=== PATIENT | female | born 1945 | race Caucasian/White ===

== ENCOUNTER 2020-06-28 11:55 | Outpatient (CLI) | payer MEDICARE, SELFPAY ==
--- NOTE | ~2020-06-28 | XR_ITS ---
XR humerus LT DATE: 06/28/2020 12:11 INDICATION: Pain of midshaft of left humerus. No injury. TECHNIQUE: AP and lateral views COMPARISON: None FINDINGS: Normal alignment at the left acromioclavicular and glenohumeral and elbow joints. No fractu re or dislocation, periosteal reaction or bone destruction of the left humerus. There are some benign cystic changes of the left greater tuberosity. IMPRESSION: No fracture or dislocation or suspicious bone destruction Reviewed, dictated and finalized at location A.
== END 2020-06-28 11:56 | disposition home or self-care (01) ==
PROVIDERS: PCP Internal Medicine; Visit Provider Internal Medicine
DX: M79.629 Pain in unspecified upper arm (principal)
CPT/HCPCS: 73060

== ENCOUNTER 2021-07-10 08:45 | Outpatient (CLI) | payer MEDICARE, SELFPAY ==
[2021-07-10 09:19] LABS: Alanine Aminotransferase 16 U/L (4-35); Albumin Level 4.9 g/dL (3.5-5.1); Alkaline Phosphatase 101 U/L (38-126); Anion Gap 6 mmol/L (8-16); Aspartate Amino Transferase 26 U/L (14-36); Bilirubin,Total 0.4 mg/dL (0.2-1.3); Blood Urea Nitrogen 21 mg/dL (7-17); Calcium 10.2 mg/dL (8.4-10.2); Carbon Dioxide 32 mmol/L (22-30); Chloride 101 mmol/L (98-107); Cholesterol 140 mg/dL (0-200); Estimated Glomerular Filt Rate > 60; Glucose 103 mg/dL (65-110); HDL Direct 61 mg/dL; Potassium 3.6 mmol/L (3.4-5.0); Sodium 139 mmol/L (137-145); Triglycerides 96 mg/dL (<150)
[2021-07-10 09:30] LABS: LDL Cholesterol Direct 53 mg/dL
== END 2021-07-10 08:46 | disposition home or self-care (01) ==
PROVIDERS: PCP Internal Medicine; Visit Provider Internal Medicine
DX: E78.5 Hyperlipidemia, unspecified (principal); Z51.81 Encounter for therapeutic drug level monitoring; Z79.899 Other long term (current) drug therapy; I10 Essential (primary) hypertension
CPT/HCPCS: 36415; 80053; 80061

== ENCOUNTER 2021-10-29 09:38 | Outpatient (CLI) | payer MEDICARE, SELFPAY ==
[2021-10-29 11:30] LABS: Basophils Absolute Auto 0.1 K/mm3 (0.0-0.1); Basophils Percent Auto 1.1 % (0.2-1.2); Eosinophils Absolute Auto 0.2 K/mm3 (0-0.3); Eosinophils Percent Auto 1.8 % (0-4.4); Hematocrit 42.9 % (37.0-47.0); Hemoglobin 13.8 g/dL (12.0-15.0); Immature Granulocyte Absolute 0.02 K/mm3 (0.00-0.031); Immature Granulocyte Percent A 0.2 % (0-0.5); Lymphocytes Absolute Auto 1.74 K/mm3 (0.9-3.2); Lymphocytes Percent Auto 19.3 % (18.3-44.2); Mean Corpuscular HGB Conc 32.2 g/dl (32-36); Mean Corpuscular Hemoglobin 29.2 pg (26-34); Mean Corpuscular Volume 90.7 fl (80-100); Mean Platelet Volume 10.2 fl (7.4-10.4); Monocytes Absolute Auto 0.7 K/mm3 (0.1-0.6); Neutrophils Absolute Auto 6.3 K/mm3 (1.3-6.7); Neutrophils Percent Auto 69.6 % (45.5-73.1); Platelet Count Result 358 k/mm3 (150-375); Red Blood Count 4.73 M/mm3 (4.2-5.4); Red Cell Distribution Width 13.1 % (11.5-14.5)
[2021-10-29 11:40] LABS: Albumin Level 4.9 g/dL (3.5-5.1); Anion Gap 12 mmol/L (8-16); Blood Urea Nitrogen 15 mg/dL (7-17); Carbon Dioxide 32 mmol/L (22-30); Chloride 97 mmol/L (98-107); Estimated Glomerular Filt Rate > 60; Glucose 101 mg/dL (65-110); Potassium 3.6 mmol/L (3.4-5.0); Sodium 141 mmol/L (137-145)
[2021-10-29 11:44] LABS: Urine Cotinine NEGATIVE
[2021-10-29 11:57] LABS: Hemoglobin A1C 5.9 % (<5.7)
== END 2021-10-29 09:39 | disposition home or self-care (01) ==
PROVIDERS: PCP Internal Medicine; Visit Provider Orthopaedic Surgery
DX: M17.12 Unilateral primary osteoarthritis, left knee (principal); Z01.818 Encounter for other preprocedural examination
CPT/HCPCS: 80048; 80307; 82040; 83036; 85025; 87070; 87147; 87181; 87186

== ENCOUNTER 2021-11-13 00:35 | Day surgery (SDC) | payer MEDICARE, SELFPAY ==
[2021-10-29 10:17] VITALS: BP 156/76; PULSE 66; RESP 18; TEMP 36.4; O2SAT 95; BMI 26.2
--- NOTE | 2021-10-29 10:32 | PC.NURSE ---
Report to the Outpatient Waiting Room, entrance under the green pavilion located off [facility], at time _10:00AM on date __11/13/21___. OR Time: __12:00PM . - You and your visitor will be asked a series of questions to screen for COVID 19 for your protection. - A mask is required within the hospital. - Only one visitor is allowed at this time. Patient visitors will be guided where to wait when not with patient. Preoperative COVID Testing Requirements: No COVID Test needed if: (proof is required; if not received patient will have Rapid Test prior to entry) - Patient has received COVID Vaccine at least 14 days prior to procedure date or - Patient has positive COVID test result within last 90 days of surgery date. COVID Test needed if above criteria is not met If not COVID vaccinated a COVID test must be conducted within 72 hours of surgery and patient is asked to isolate self from time of testing until procedure. You will go to the [facility] for your COVID testing. The [facility] is located at the corner of [address] from [facility]. You will only be called if COVID results are positive and your surgeon may reschedule your elective surgery date. Patients may have clear liquids (water, carbonated beverages, clear teas, apple juice) until 3 hours prior to surgery with a maximum of 20 ounces. - No food from midnight until time of surgery - Infants may have breast milk until 4 hours before surgery, infant formula 6 hours prior to surgery. - Children will be allowed to drink immediately following surgery. If applicable, please bring a bottle or sippy cup to assist with drinking. Juice, water, soda, and popsicles are readily available. For infants on formula, please bring formula the day of surgery. Pacifiers are allowed. Take the following medications with a SIP of water the morning of surgery: HYDRALAZINE Medications to discontinue per physician ____ALL VITAMINS/SUPPLEMENTS 3 DAYS PRE-OP Date to take last dose____11/09/21 Please no make-up, nail greenlandic, hairspray, perfume, deodorant, or body powder the day of surgery. No jewelry (including any body piercings) or valuables the day of surgery, leave them at home. Please take a shower or bath the night before, or the morning of, surgery with an antibacterial soap. Wear comfortable, loose fitting clothing. Children are encouraged to wear pajamas. - Jewelry must be removed prior to entering the operating room. Rings and piercings that are not removed may be cut off. - The hospital will not accept responsibility for valuables. - Please leave all valuables, including medications, at home the day of surgery. If you are going home after surgery, a licensed tram driver must drive you home. - NO public transportation without another adult. - We recommend that an adult stay with you for 24 hours following discharge. - We also recommend that you do not drive, make important decision, drink alcoholic beverages, or take any drugs that were not prescribed by your health care provider for at least 24 hours after your discharge time. For Pediatric surgeries, we recommend two adults accompany the child home (only one inside the building at this time). Follow any additional instructions given to you from your surgeon. Telephone instructions given to __PATIENT and asked if any additional questions and then verbalized understanding. Patient advised to call surgeon office or pre surgery nurse liaison [phone] if any additional questions.
[2021-11-13] VITALS (14 sets, daily range): BP systolic 92–151; BP diastolic 49–85; PULSE 72–95; RESP 8–22; TEMP 36.1–36.9; O2SAT 92–100
--- NOTE | ~2021-11-13 | XR_ITS ---
EXAMINATION: XR knee LT 2V DATE: 11/13/2021 16:40 INDICATION: Total left knee arthroplasty. Postop. TECHNIQUE: 2 views of left knee were obtained. COMPARISON: None. FINDINGS: There is a total left knee arthroplasty with patellar resurfacing in near-anatomic alignmen t. No fracture. There is gas in the knee joint and soft tissues, consistent with recent surgery. IMPRESSION: 1. Total left knee arthroplasty in near-anatomic alignment. Reviewed, dictated and finalized at location A. COLOGY TEACHER
--- NOTE | 2021-11-13 08:06 | PM.IMHP ---
H&P: HPI History of Present Illness Date/Time: 11/13/21 08:06 76-year-old female patient who presents today for left total knee arthroplasty and a cortisone injection into the right knee. She has severe lateral compartment arthritis with a significant valgus deformity in both her knees. Her left is bothering her more than the right at this point. He has been treating this nonsurgically for years. She has reached a point where she feels that her symptoms are bothering her on a daily basis and she would like proceed with total knee arthroplasty. She is unable to take anti-inflammatories due to a history allergic reactions with them. Chief Complaint: Left knee DJD Review of Systems Review of Systems: All systems reviewed & are unremarkable except as noted in HPI and below PMFSH Past Medical History Medical History Bilateral breast cysts Chronic right shoulder pain Diarrhea History of urinary urgency On [facility] drug therapy Osteoarthritis of both knees Pain of left thumb Family History Family History Father Hypertension Mother Hypertension Social History Social History Smoking status: Never smoker Second hand tobacco smoke exposure: No Alcohol intake: never Substance use: never Substance use type: does not use Living arrangements: with family Additional living arrangements comments: HUSB Spiritual care concerns: No Meds Home Medications and Allergies Home Medications Medication Instructions Recorded Confirmed Type hydralazine 50 mg tablet 50 mg PO TID #90 tablet 10/21/21 11/08/21 Rx ascorbic acid-vitamin E-biotin 1 tablet PO DAILY 10/29/21 11/08/21 History [Hair, Skin, Nails with Biotin] candesartan 32 1 tablet PO QAM #90 tablet 11/08/21 11/08/21 Rx mg-hydrochlorothiazide 12.5 mg tablet nystatin 100,000 unit/gram topical 1 applic TOPICAL BID #15 g 11/08/21 11/08/21 Rx powder Allergies Allergy/AdvReac Type Severity Reaction Status Date / Time naproxen Allergy Mild Hives Verified 11/08/21 10:50 niacin Allergy Mild Hives Verified 11/08/21 10:50 potassium chloride AdvReac Unknown Verified 11/08/21 10:50 Exam Narrative: 76-year-old female alert pleasant. She is 5 ft 5 and 155 lb. Left knee range of motion is from 7-75 degrees. She has effusion. She has an obvious valgus deformity. She walks with a limp. 2+ dorsalis pedis and posterior tibial artery pulse in left leg. Hip range of motion is full without discomfort left. Normal quad strength. No numbness or tingling left lower extremity. No edema in left lower extremity. Resp: Auscultation: clear to auscultation bilaterally Cardio: Rate: regular rate Rhythm: regular rhythm Assessment and Plan Additional Plan 76-year-old female has severe lateral compartment arthritis in the left knee with limited range of motion and significant pain daily basis. Surgical option was discussed and patient would like to proceed. Surgical procedure as well as the risks complications were discussed in detail all questions were answered we will proceed. She has seen her primary care doctor she has also seen Dr. Giron, pearl fisherman, she has had an echo done which showed ejection fraction at 67%, normal left ventricular function. She has been cleared from cardiology standpoint. She will stop her aspirin 1 week prior to surgery. Preop hemoglobin is 13.8 platelets of 358. Chem panel is all within normal limits creatinine is 0.50. Her nasal swab did grow oxacillin sensitive Staph aureus and she has been decolonization. We will avoid anti-inflammatories postoperatively as well as any Toradol in the perioperative injection.
[2021-11-13] MEDS: ACETAMINOPHEN 500 MG TABLET 1000 MG PO ×2 (10:16→18:59)
[2021-11-13] MEDS: LACTATED RINGERS 1,000 ML 30 ML IV CONT ×2 (10:40→16:28)
--- NOTE | 2021-11-13 11:10 | P.PNAN_ITS ---
Anes - Initial Pre Proc Eval Procedure: Operation Date: 11/13/21 12:00 Proposed Procedures p Left Total Knee Arthroplasty, Right Knee Cortisone Injection - Umang Ndiaye MD Date/Time: 11/13/21 11:10 Surgeon: Umang Ndiaye MD Pre Op Diagnosis: OA left knee, OA right knee Patient Data Age: 76 Gender: F Height: 1.66 m Weight: 70.05 kg Last Vital Signs Temp 36.9 C 11/13/21 10:08 Pulse 83 11/13/21 10:08 Resp 20 11/13/21 10:08 BP 151/67 H 11/13/21 10:08 Pulse Ox 100 11/13/21 10:08 Allergies Allergy/AdvReac Type Severity Reaction Status Date / Time naproxen Allergy Mild Hives Verified 11/13/21 10:08 niacin Allergy Mild Hives Verified 11/13/21 10:08 potassium chloride AdvReac Mild BLOODY Verified 11/13/21 10:08 STOOL/CONSTIPATION Home Medications Medication Instructions Recorded Confirmed Type hydralazine 50 mg tablet 50 mg PO TID #90 tablet 10/21/21 11/13/21 Rx ascorbic acid-vitamin E-biotin 1 tablet PO DAILY 10/29/21 11/13/21 History [Hair, Skin, Nails with Biotin] candesartan 32 1 tablet PO QAM #90 tablet 11/08/21 11/13/21 Rx mg-hydrochlorothiazide 12.5 mg tablet nystatin 100,000 unit/gram topical 1 applic TOPICAL BID #15 g 11/08/21 11/13/21 Rx powder Patient hx anesthesia problems: post op nausea/vomiting Family hx anesthesia problems: none Results Review: All pre-operative results and documents have been reviewed as part of the pre-operative evaluation. 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 Osteoarthritis of both knees Pain of left thumb Family History Family History Father Hypertension Mother Hypertension Social History Social History Smoking status: Never smoker Second hand tobacco smoke exposure: No Alcohol intake: never Substance use: never Substance use type: does not use Living arrangements: with family Additional living arrangements comments: HUSB Spiritual care concerns: No Anes - Eval Final PreProcedure Day of Procedure 11/13/21 11:10 Patient weight: normal Heart: regular rate and rhythm Lungs: clear to auscultation Airway: Mallampati scale class II Neurological: alert and oriented Last oral intake: >/= 8 hours ASA classification: II Emergent: no Anesthetic plan: proceed Anesthesia type and monitoring: general LMA and standard monitoring Results Review: All pre-operative results and documents have been reviewed as part of the pre-operative evaluation. Informed Consent: The patient's anesthetic plan and its attendant risks and benefits were discussed with the patient/family/POA. Questions were solicited and answers provided to the satisfaction of the patient/family/POA.
[2021-11-13] MEDS: TRANEXAMIC ACID 1,000MG/ISO100 1,000 MG/100 ML BAG 200 MG IVPB (11:55)
--- NOTE | 2021-11-13 11:58 | WPDHPUPDATE1 ---
History and Physical Update Update Date/Time: 11/13/21 11:58 History and Physical has been reviewed, including an updated exam of the patient. There are NO changes in the patient's condition. Risks, benefits, and alternatives have been discussed and questions answered. Patient agrees to proceed with procedure.
[2021-11-13] MEDS: ceFAZolin 2 GM/D5W 50 ML 2 GM/50 ML BAG IVPB (12:53)
[2021-11-13] MEDS: ceFAZolin SODIUM 1 GM VIAL 3 GM IRRIGATION (13:05)
[2021-11-13] MEDS: ceFAZolin SODIUM 1 GM VIAL IV PUSH (15:24)
[2021-11-13] MEDS: TRANEXAMIC ACID 1,000 MG/10 ML AMPUL 1000 MG IV PUSH (15:24)
--- NOTE | 2021-11-13 16:13 | W.PM.PROC2 ---
Procedure Note - Detailed Date of Procedure 11/13/21 Pre-op Diagnosis OA left knee with grade 3 valgus deformity and medial joint space widening, OA right knee Post-op Diagnosis same Procedure Performed Cortisone injection right knee, left total knee arthroplasty with Biomet SSK constrained system Surgeon Umang Ndiaye MD Industrial Organization Manager Sabrina Shi Anesthesia general Description of Procedure Patient was brought to the operating room and general anesthesia was administered. She received 2 g Ancef weight based vancomycin 1 g of tranexamic acid preoperatively. The right knee was scrubbed with chlorhexidine alcohol and 80 mg of Depo-Medrol 3 cc 1% lidocaine were injected into the right knee other difficulty. The left knee was prepped draped usual fashion. Limb was exsanguinated tourniquet elevated to 250 mmHg. Under anesthesia she had range of motion from 10? to 140?. A 7 in longitudinal midline incision was used and a a vastus medialis splitting approach was utilized splitting the vastus medialis at the level of superior pole of patella. The infrapatellar and suprapatellar fat pads were excised the quadriceps of ectomy carried out. The patella measured 21 mm in thickness was cut to 15 mm and a protector cap applied. Next a guide myles was inserted down the femoral canal after aspiration of canal contents and using the 4 degree valgus cutting bushing 11 mm of bone removed the distal femur. This removed about 3 from lateral side. Next the tibial plateau was cut. Our initial cut did not quite get through the articular cartilage of the posterior aspect of the medial femoral condyle and therefore an additional 2 mm of bone was removed which gave appropriate bone surface. We made the cut perpendicular axis of tibia with perhaps 1 degree of valgus to avoid impingement of the stem of the tibial component on the lateral cortex of the tibial shaft. The femoral sizing guide was applied using 5? of external rotation which matched Whitesides line appropriately. Posterior referencing pinholes were applied. The 62.5 cutting block was applied vanguard and AP and chamfer cuts were made. Femoral component fit line to line anterior to posterior. It overhung a about a mm and half mediolateral at this point. At 90? of flexion we inserted the CR 10 mm insert and we had adequate play confirming we had enough tibial bone removed. The knee became very tight at about 45? of flexion. Additional 3 mm of bone was removed the distal femur at this time. Chamfer cuts were revisited. Posterior capsular release was performed as she did have a flexion contracture. This was brought to the medial aspect of the center of the capsule insertion to the lateral add a gastrocnemius tendon. The IT band did not seem to be exceptionally tight but we did do a synovectomy over the lateral capsule leaving the IT band intact and the lateral tibial osteophyte was carefully removed and posterolaterally the posterolateral capsule insertion was released from tibia. We read trialed and the knee still lacks 5? of extension and was very tight laterally in this position. Therefore an additional 2 mm of bone removed from the distal femur. Chamfer cuts revisited and this time with trialing the knee came out to just full extension and the medial side could be closed down with varus stress but no play laterally. The tibial tray was sized to the vanguard 67 placed at proper rotation and punched which fit line to line posterolateral to anteromedial. This was punched with the 80 mm finned stem which did not appear to cause impingement in the tibial shaft and ostial surface. It seated fully. Next the 360 degree 60 the 2.5 femoral trial was applied to the femur and pinned. We applied the bushing for reaming the boss which was performed and we applied the guide for resecting the intercondylar box. We confirmed that the box was properly cut with the rectangular block that fit easily. The femoral canal was reamed t
--- NOTE | 2021-11-13 16:38 | SUR.PHASEI ---
PORTABLE XRAY OF LEFT KNEE.
[2021-11-13] MEDS: fentaNYL CITRATE INJ (*CRX) 100 MCG/2 ML VIAL 25 MCG IV PUSH ×5 (17:10→18:16)
--- NOTE | 2021-11-13 17:17 | SUR.PHASEI ---
CORRECTION: DISREGARD PAIN INTERVENTION OF IONOPHERESIS AT 1655.
--- NOTE | 2021-11-13 18:36 | ADMGEN ---
This patient, Hoa Miranda, was admitted to [facility] Surgery-3. Patient/family oriented to hospital policies and general routines including ID bracelet, bed and alarms, visiting hours, pain management, procedures, bathroom and other care routines, personal items, smoking policy, room service/diet, and visiting hours. Information on how to activate the Rapid Response Team has been discussed. Patient/Family are encouraged to report perceived risks to care and to ask questions if they do not understand what they are told or what they should do.
[2021-11-13] MEDS: SODIUM CHLORIDE 0.9% IV 1,000 ML 125 ML IV CONT (18:52)
[2021-11-13] MEDS: SENNA/DOCUSATE SODIUM TABLET 2 TAB PO (18:59)
[2021-11-13] MEDS: hydrALAZINE HCL 50 MG TABLET PO (20:14)
[2021-11-13] MEDS: oxyCODONE HCL (*CRX) 2.5 MG TAB IR PO (21:03)
--- NOTE | 2021-11-13 22:18 | PM.IMCN ---
Assessment and Plan Assessment and plan (1) Primary osteoarthritis involving multiple joints: Code(s): M89.49 - Other hypertrophic osteoarthropathy, multiple sites Status: Acute (2) Status post arthroscopy of left knee: Code(s): Z98.890 - Other specified postprocedural states Status: Acute (3) Benign essential hypertension: Code(s): I10 - Essential (primary) hypertension Status: Acute (4) Borderline diabetes: Code(s): R73.03 - Prediabetes Status: Acute Additional Plan # stauts post left TKA per Dr. Ndiaye # bialteral knee osteoarthritis. s/p right knee steroid injection. # htn: optimal. resume home medicatiosn. candesartan and hydralazine. # rediabets: a1c ntoed at 5.9. # DVT Proph: per orthopedics # postoperaive care: pt/ot as planned in am. Thank you for the consultation. HPI Data of Consult Consult date: 11/13/21 Requesting Physician: Umang Ndiaye MD Primary Care Provider: Cecilio Arreola, Consult Narrative Narrative: Hoa Miranda is a 76 year old female who presented to the hospital for elective right Total knee arthroplasty. which was done ths . hospitalist team consulted for medical management. she has hx of hypertension for which she takes candesartan and hydralazine and has been well controlled. she is currently post operative day 0 and in PACU. she is feeling alittle nausous, she recenlty got oxycodone. denies any pain currnetly. no sob, cehst pain. Review of Systems Review of Systems: - CONSTITUTIONAL: Denies weight loss, fever and chills. - HEENT: Denies changes in vision and hearing - RESPIRATORY: Denies SOB and cough. - CV: Denies palpitations and CP. - GI: Denies abdominal pain, nausea, vomiting and diarrhea. - : Denies dysuria and urinary frequency. - MSK: Denies myalgia and joint pain.hx of bailterarl knee pains - SKIN: Denies rash and pruritus. - NEUROLOGICAL: Denies headache and syncope. - PSYCHIATRIC: Denies recent changes in mood. Denies anxiety and depression. 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 Osteoarthritis of both knees Pain of left thumb Family History Family History Father Hypertension Mother Hypertension Social History Social History Smoking status: Never smoker Second hand tobacco smoke exposure: No Alcohol intake: never Substance use: never Substance use type: does not use Living arrangements: with family Additional living arrangements comments: HUSB Spiritual care concerns: No Meds Home Medications and Allergies Home Medications Medication Instructions Recorded Confirmed Type hydralazine 50 mg tablet 50 mg PO TID #90 tablet 10/21/21 11/13/21 Rx ascorbic acid-vitamin E-biotin 1 tablet PO DAILY 10/29/21 11/13/21 History [Hair, Skin, Nails with Biotin] candesartan 32 1 tablet PO QAM #90 tablet 11/08/21 11/13/21 Rx mg-hydrochlorothiazide 12.5 mg tablet nystatin 100,000 unit/gram topical 1 applic TOPICAL BID #15 g 11/08/21 11/13/21 Rx powder Allergies Allergy/AdvReac Type Severity Reaction Status Date / Time naproxen Allergy Mild Hives Verified 11/13/21 18:31 niacin Allergy Mild Hives Verified 11/13/21 18:31 potassium chloride AdvReac Mild BLOODY Verified 11/13/21 18:31 STOOL/CONSTIPATION Vital Signs Vital Signs - 24 hr 11/13/21 10:08 11/13/21 16:28 11/13/21 16:40 Temperature 98.4 F 97.9 F Pulse Rate 83 95 75 Respiratory Rate 20 17 17 Blood Pressure 151/67 H 116/61 12
[2021-11-14] VITALS: BP 139/66; PULSE 84; RESP 16; TEMP 37.1; O2SAT 92
[2021-11-14] MEDS: ACETAMINOPHEN 500 MG TABLET 1000 MG PO ×3 (00:03→13:29)
[2021-11-14 04:00] VITALS: BP 139/59; PULSE 80; RESP 16; TEMP 37.2; O2SAT 94
[2021-11-14 05:56] VITALS: O2SAT 94
[2021-11-14] MEDS: oxyCODONE HCL (*CRX) 2.5 MG TAB IR PO (06:00)
[2021-11-14 06:56] LABS: Basophils Percent Auto 0.1 % (0.2-1.2); Hematocrit 34.6 % (37.0-47.0); Hemoglobin 11.5 g/dL (12.0-15.0); Immature Granulocyte Absolute 0.09 K/mm3 (0.00-0.031); Immature Granulocyte Percent A 0.5 % (0-0.5); Lymphocytes Absolute Auto 0.73 K/mm3 (0.9-3.2); Mean Corpuscular HGB Conc 33.2 g/dl (32-36); Mean Corpuscular Hemoglobin 29.3 pg (26-34); Monocytes Absolute Auto 1.6 K/mm3 (0.1-0.6); Monocytes Percent Auto 8.6 % (2.6-8.5); Neutrophils Percent Auto 86.8 % (45.5-73.1); Platelet Count Result 296 k/mm3 (150-375); Red Blood Count 3.93 M/mm3 (4.2-5.4); Red Cell Distribution Width 13.2 % (11.5-14.5); White Blood Count 18.4 K/mm3 (4.5-10.0)
[2021-11-14 07:04] LABS: Anion Gap 8 mmol/L (8-16); Blood Urea Nitrogen 15 mg/dL (7-17); Calcium 9.1 mg/dL (8.4-10.2); Carbon Dioxide 28 mmol/L (22-30); Chloride 100 mmol/L (98-107); Estimated CRCL calculation 76 ml/min; Estimated Glomerular Filt Rate > 60; Glucose 156 mg/dL (65-110); Potassium 3.6 mmol/L (3.4-5.0); Sodium 136 mmol/L (137-145)
--- NOTE | 2021-11-14 07:30 | PM.PNORT ---
Subjective Subjective Date/Time Seen: 11/14/21 07:30 Postop day 1 patient is alert. Afebrile vital signs are stable. Morning labs are noted. Patient is complaining some pain in the right upper. This started overnight. She thinks she has been using the right leg more. Right hip does have full range of motion without discomfort. She is able lift the right leg off the bed without discomfort. She has negative Stinchfield maneuver. There is no bruising noted around the upper thigh. I think this is just muscular soreness from her straining move herself in bed using the right leg. Otherwise patient's left leg she is neurovascularly intact. Her dressing is dry. Minimal swelling in the left knee. Pain overall is well controlled. We will plan to have the patient work with physical therapy twice today and then plan on discharging her home this afternoon if she continues to do well. Objective Data Vital Signs Vital Signs: Vital Signs - 24 hr 11/13/21 10:08 11/13/21 16:28 11/13/21 16:40 Temperature 36.9 C 36.6 C Pulse Rate 83 95 75 Respiratory Rate 20 17 17 Blood Pressure 151/67 H 116/61 125/59 L Pulse Oximetry 100 95 95 11/13/21 16:55 11/13/21 17:05 11/13/21 17:20 Temperature Pulse Rate 72 76 79 Respiratory Rate 11 L 11 L 22 H Blood Pressure 107/54 L 92/49 L 123/62 Pulse Oximetry 92 94 93 11/13/21 17:35 11/13/21 17:50 11/13/21 18:05 Temperature Pulse Rate 76 75 80 Respiratory Rate 13 9 L 8 L Blood Pressure 110/59 L 117/54 L 114/54 L Pulse Oximetry 92 92 92 11/13/21 18:29 11/13/21 18:40 11/13/21 18:45 Temperature 36.1 C L 36.1 C L Pulse Rate 78 83 Respiratory Rate 18 18 Blood Pressure 133/55 L 132/60 Pulse Oximetry 92 93 93 11/13/21 19:06 11/13/21 20:06 11/14/21 00:00 Temperature 37.1 C Pulse Rate 87 80 84 Respiratory Rate 16 16 16 Blood Pressure 140/69 130/85 139/66 Pulse Oximetry 96 97 92 11/14/21 04:00 11/14/21 05:56 Temperature 37.2 C Pulse Rate 80 Respiratory Rate 16 Blood Pressure 139/59 L Pulse Oximetry 94 94 Intake/Output Intake/Output: Intake & Output 11/11/21 11/12/21 11/13/21 11/14/21 23:59 23:59 23:59 23:59 Intake Total 1250 300 Output Total 75 400 Balance 1175 -100 Meds/Results Medications: Active Medications Generic Name Dose Route Start Last Admin Trade Name Freq PRN Reason Stop Dose Admin Acetaminophen 1,000 mg 11/13/21 18:21 11/14/21 00:03 Acetaminophen 500 Mg Tablet PO 1,000 mg Q6HR MARILU Administration Apixaban 2.5 mg 11/14/21 09:00 Apixaban 2.5 Mg Tablet PO Q12HR MARILU Candesartan Cilexetil 32 mg 11/14/21 09:00 Candesartan Cilexetil 16 Mg Tablet PO QAM [facility] Doxycycline Hyclate 100 mg 11/14/21 09:00 Doxycycline Hyclate 100 Mg Tablet PO 11/26/21 08:59 Q12HR MARILU Hydralazine HCl 50 mg 11/13/21 18:30 11/13/21 20:14 Hydralazine Hcl 50 Mg Tablet PO 50 mg TID MARILU Administration Hydrochlorothiazide 12.5 mg 11/14/21 09:00 Hydrochlorothiazide 12.5 Mg Capsule PO QAM [facility] Cefazolin Sodium 1 gm in 50 mls @ 100 mls/hr 11/13/21 21:00 11/14/21 05:34 Ancef 1 Gm/D5w 50 Ml Pm IVPB 11/14/21 13:29 Infused Q8H MARILU Infusion Vancomycin HCl 1,000 mg in 250 mls @ 250 mls/hr 11/13/21 23:00 11/14/21 01:00 Vancomycin 1,000 Mg/D5w 250 Ml IVPB 11/14/21 11:59 Infused Q12H MARILU Infusion Naloxone HCl 0.1 mg 11/13/21 18:21 Naloxone Hcl 0.4 Mg/Ml Vial IV PUSH Q2M PRN Opiate Reversal Oxycodone HCl 2.5 mg 11/13/21 21:00 11/14/21 06:00 Oxycodone Hcl (*Crx) 2.5 Mg Tab Ir PO 2.5 mg Q4HR MARILU Administration Oxycodone HCl 5 mg 11/13/21 18:21 Oxycodone Hcl (*Crx) 5 Mg Tab Ir PO Q4H PRN Pain Rated 4-10 Polyethylene Glycol 17 gm 11/14/21 09:00 Polyethylene Glycol 3350 17 Gm Powd.Pack PO QAM MARILU Senna/Docusate Sodium 2 tab 11/13/21 18:21 11/13/21 18:59 Senna/Docusate Sodium Tablet PO 2 tab BID MARILU Administration Tolnaft
--- NOTE | 2021-11-14 07:36 | PM.DS ---
DS: Admitting Diagnosis Discharge Date 11/14 Admitting Diagnosis Left knee DJD DS: Summary Hospital Course Hospital Course: Stable Time Spent with Patient Time attestation: Total time spent providing and/or coordinating discharge services: 76-year-old female who underwent left total knee arthroplasty on 11/13. Underwent the procedure without complications. Postoperatively she has been afebrile vital signs been stable. Neurovascularly intact. She was complaining of some pain in the right upper thigh on postop day 1 that developed overnight. She thinks she was putting a lot more stress onto the right leg to move herself around not only in bed but also to get up and go to the restroom. She had no pain with range of motion of the right thigh. She was able to pick the right leg up off the bed on her own. This could be musculoskeletal or possibly referred pain from her back. We will just keep an eye on this to see if it improves. Otherwise her pain is well controlled with scheduled Tylenol as well as oxycodone 2.5 mg. We are not using Celebrex on her due to her allergies. She is going home on a 2 week course of doxycycline because of her positive nasal swab for LAUREN. She has outpatient therapy starting next Thursday. Patient was advised to keep leg elevated at home but to exercise on a regular basis. She will also go home on MiraLax and Senokot. Patient was advised any questions or concerns she is to call the office otherwise we will see her at her appointment date. DS: Data Data Completed and Pending Labs on day of discharge: Labs from last 24 hours 11/14/21 11/14/21 11/13/21 06:31 06:31 10:42 WBC 18.4 H RBC 3.93 L Hgb 11.5 L Hct 34.6 L MCV 88.0 MCH 29.3 MCHC 33.2 RDW 13.2 Plt Count 296 MPV 10.0 Immature Gran % (Auto) 0.5 Neut % (Auto) 86.8 H Lymph % (Auto) 4.0 L [place] % (Auto) 8.6 H Eos % (Auto) 0.0 Baso % (Auto) 0.1 L Lymph # (Auto) 0.73 L [place] # (Auto) 1.6 H Eos # (Auto) 0.0 Baso # (Auto) 0.0 Abs Immat Gran (auto) 0.09 H Absolute Neuts (auto) 16.0 H Absolute Nucleated RBC 0.0 Nucleated RBC % 0.0 Sodium 136 L Potassium 3.6 Chloride 100 Carbon Dioxide 28 Anion Gap 8 BUN 15 Creatinine 0.50 L Estim Creat Clear Calc 76 Estimated GFR > 60 Glucose 156 H Calcium 9.1 Blood Type O Positive Antibody Screen Negative Discharge Plan Discharge Patient Disposition: Home, Self-Care Discharge Instructions: UMANG NDIAYE M.D [facility], [place] [address] [place] [address] POST-OPERATIVE DISCHARGE INSTRUCTIONS TOTAL KNEE ARTHROPLASTY 1. When resting, lie on back with leg elevated above hear to minimize swelling. Significant swelling could indicate a blood clot and if this occurs call the office (or go to the ER) to have a venous ultrasound. 2. Do exercise 5 times a day. 3. Do not sit with leg down except for meals. 4. Wound Care: Nursing will give additional dressings at discharge. Patient to change dressing at home 1 week from surgery, then maintain until seen in office. 5. May shower with dressing in place. Stand Alone Forms: General Discharge Instructions Follow-up/Referrals: Umang Ndiaye MD [Physician] - Keep Reg. Scheduled Appt. Discharge Medications: New polyethylene glycol 3350 [Miralax] 17 gram Powder In Packet 17 g PO QAM Qty: 30 RF: 0 sennosides-docusate sodium [Senokot-S] 8.6-50 mg Tablet 2 tab PO BID Qty: 60 RF: 0 acetaminophen 500 mg Tablet 1,000 mg PO Q6HR Qty: 90 RF: 0 doxycycline hyclate 100 mg Tablet 100 mg PO Q12HR Qty: 28 RF: 0 oxycodone 5 mg Tablet 5 mg PO Q4H PRN (Reason: Pain Rated 4-10) Qty: 25 RF: 0 Eliquis 2.5 mg Tablet 2.5 mg PO Q12HR Qty: 27 RF: 0 Continued candesartan-hydrochlorothiazid 32-12.5 mg tablet 1 tablet PO QAM Qty: 90 RF: 2 nystat
[2021-11-14 08:00] VITALS: BP 142/60; PULSE 82; RESP 16; O2SAT 98
--- NOTE | 2021-11-14 08:08 | PM.IMPN ---
Progress Note: A&P Assessment and Plan (1) Benign essential hypertension: Code(s): I10 - Essential (primary) hypertension Status: Acute Assessment and Plan: Chronic hypertension, well controlled on home regimen. Continue home medication without modification. Encouraged physical activity and low-salt diet. (2) Borderline diabetes: Code(s): R73.03 - Prediabetes Status: Acute Assessment and Plan: No concentrated sugar diet. Encourage physical activity. (3) Primary osteoarthritis involving multiple joints: Code(s): M89.49 - Other hypertrophic osteoarthropathy, multiple sites Status: Acute (4) Status post arthroscopy of left knee: Code(s): Z98.890 - Other specified postprocedural states Status: Acute Assessment and Plan: Management per Ortho. Continue physical therapy and occupational therapy. Additional Plan # stauts post left TKA per Dr. Ndiaye # bialteral knee osteoarthritis. s/p right knee steroid injection. # htn: optimal. resume home medicatiosn. candesartan and hydralazine. # rediabets: a1c ntoed at 5.9. # DVT Proph: per orthopedics # postoperaive care: pt/ot as planned in am. Thank you for the consultation. Subjective Date/time seen: 11/14/21 08:08 Narrative: Hoa Miranda is a 76 year old female who presented to the hospital for elective right Total knee arthroplasty. which was done this evening. hospitalist team consulted for medical management. she has hx of hypertension for which she takes candesartan and hydralazine and has been well controlled. she is currently post operative day 0 and in PACU. she is feeling a little nauseous, she recently got oxycodone. denies any pain currently. no sob, chest pain. Review of Systems Review of Systems: All systems reviewed & are unremarkable except as noted in HPI and below Constitutional: Constitutional: Reports fatigue and Reports weakness Neurologic: Reports weakness Endocrine: Endocrine: Reports fatigue Exam Narrative: GENERAL: The patient is well developed, not in acute distress HEENT: Nonicteric sclerae, PERRLA, EOMI. Oropharynx clear. Moist mucous membranes. Conjunctivae appear well perfused. CHEST: Chest wall is nontender. HEART: Regular rate and rhythm without murmur, rubs, or gallops LUNGS: Clear to auscultation bilaterally. no respiratory distress ABDOMEN: Soft, positive bowel sounds, non-tender, no organomegaly. SKIN: No rash, no excessive bruising, petechiae, or purpura. NEUROLOGIC: Cranial nerves II-XII intact, alert and oriented x 3, no gross motor deficits EXTREMITIES: no edema, cyanosis or clubbing; left knee with dressing on Objective Data Vital Signs Vital Signs: Vital Signs - 24 hr 11/13/21 10:08 11/13/21 16:28 11/13/21 16:40 Temperature 98.4 F 97.9 F Pulse Rate 83 95 75 Respiratory Rate 20 17 17 Blood Pressure 151/67 H 116/61 125/59 L Pulse Oximetry 100 95 95 11/13/21 16:55 11/13/21 17:05 11/13/21 17:20 Temperature Pulse Rate 72 76 79 Respiratory Rate 11 L 11 L 22 H Blood Pressure 107/54 L 92/49 L 123/62 Pulse Oximetry 92 94 93 11/13/21 17:35 11/13/21 17:50 11/13/21 18:05 Temperature Pulse Rate 76 75 80 Respiratory Rate 13 9 L 8 L Blood Pressure 110/59 L 117/54 L 114/54 L Pulse Oximetry 92 92 92 11/13/21 18:29 11/13/21 18:40 11/13/21 18:45 Temperature 96.9 F L 97 F L Pulse Rate 78 83 Respiratory Rate 18 18 Blood Pressure 133/55 L 132/60 Pulse Oximetry 92 93 93 11/13/21 19:06 11/13/21 20:06 11/14/21 00:00 Temperature 98.7 F Pulse Rate 87 80 84 Respiratory Rate 16 16 16 Blood Pressure 140/69 130/85 139/66 Pulse Oximetry 96 97 92 11/14/21 04:00 11/14/21 05:56 Temperature 98.9 F Pulse Rate 80 Respiratory Rate 16 Blood Pressure 139/59 L Pulse Oximetry 94 94 Intake/Output Intake/Output: Intake & Output 11/11/21 11/12/21 11/13/21 11/14/21 23:59 23:59 23:59 23:59 Intake Total 1250 300 Output Total 75 400 Ba
[2021-11-14] MEDS: APIXABAN 2.5 MG TABLET PO (09:20)
[2021-11-14] MEDS: CANDESARTAN CILEXETIL 16 MG TABLET 32 MG PO (09:20)
[2021-11-14] MEDS: SENNA/DOCUSATE SODIUM TABLET 2 TAB PO (09:20)
[2021-11-14] MEDS: hydroCHLOROthiazide 12.5 MG CAPSULE PO (09:21)
[2021-11-14] MEDS: DOXYCYCLINE HYCLATE 100 MG TABLET PO (09:21)
[2021-11-14] MEDS: hydrALAZINE HCL 50 MG TABLET PO (09:22)
--- NOTE | 2021-11-14 09:27 | WPDANESPN ---
Anes - Prog Note Post-Op Date/Time: 11/14/21 09:27 Cardiovascular status: normal Respiratory status: normal Airway patency: baseline Mental status: baseline Post-Op hydration status: normal Vital Signs: Last Vital Signs Temp 37.2 C 11/14/21 04:00 Pulse 80 11/14/21 04:00 Resp 16 11/14/21 04:00 BP 139/59 L 11/14/21 04:00 Pulse Ox 94 11/14/21 05:56 Pain Score (VAS): 4 I/O: Intake & Output 11/13/21 11/14/21 11/14/21 23:59 07:59 15:59 Intake Total 850 300 Output Total 75 400 Balance 775 -100 Laboratory Tests 11/14/21 06:31 11/14/21 06:31 11/13/21 11/14/21 11/14/21 10:42 06:31 06:31 WBC 18.4 H RBC 3.93 L Hgb 11.5 L Hct 34.6 L MCV 88.0 MCH 29.3 MCHC 33.2 RDW 13.2 Plt Count 296 MPV 10.0 Immature Gran % (Auto) 0.5 Neut % (Auto) 86.8 H Lymph % (Auto) 4.0 L [place] % (Auto) 8.6 H Eos % (Auto) 0.0 Baso % (Auto) 0.1 L Lymph # (Auto) 0.73 L [place] # (Auto) 1.6 H Eos # (Auto) 0.0 Baso # (Auto) 0.0 Abs Immat Gran (auto) 0.09 H Absolute Neuts (auto) 16.0 H Absolute Nucleated RBC 0.0 Nucleated RBC % 0.0 Sodium 136 L Potassium 3.6 Chloride 100 Carbon Dioxide 28 Anion Gap 8 BUN 15 Creatinine 0.50 L Estim Creat Clear Calc 76 Estimated GFR > 60 Glucose 156 H Calcium 9.1 Blood Type O Positive Antibody Screen Negative Post-procedural complaints: none Patient Feedback: Patient satisfied with anesthetic care.
== END 2021-11-14 14:30 | disposition home or self-care (01) ==
LOC: ANHSURGERY 17:28 → ANHSUROVER 04-04 12:48
PROVIDERS: PCP Internal Medicine; Visit Provider Orthopaedic Surgery
PROC: (CPT 27447; principal; 2021-11-13 12:00)
DX: M17.0 Bilateral primary osteoarthritis of knee (principal); I10 Essential (primary) hypertension; R73.03 Prediabetes; Z79.899 Other long term (current) drug therapy
CPT/HCPCS: 27447; 20610; 36415; 73560; 80048; 80307; 82040; 83036; 85025; 86850; 86900; 86901; 87070; 87147; 87181; 87186; 97110; 97116; 97161; 97165; A9270; C1713; C1776; J0171; J0690; J1040; J1100; J1170; J2250; J2270; J2370; J2405; J2710; J2795; J3010; J3370; J7030; J7120

== ENCOUNTER 2021-11-25 13:30 | Outpatient (CLI) | payer MEDICARE, SELFPAY ==
--- NOTE | ~2021-11-25 | US_ITS ---
EXAMINATION: US venous doppler [facility] EXAM DATE: 11/25/2021 14:02 INDICATION: Left leg swelling. TECHNIQUE: Multiple grayscale, color flow and Doppler images of the left lower extremity deep venous system were obtained and reviewed. There is no prior study for comparison. FINDINGS: The left common femoral, femoral and profunda veins demonstrate normal color flow, respirat ory variation, augmentation and compressibility. Compressibility, color flow confirmed within the le ft popliteal, posterior tibial, peroneal, and greater saphenous veins. IMPRESSION: 1. No left lower extremity deep venous thrombosis. Reviewed, dictated and finalized at location B. [employer]
== END 2021-11-25 13:31 | disposition home or self-care (01) ==
LOC: ANHIMG 13:35
PROVIDERS: PCP Internal Medicine; Visit Provider Orthopaedic Surgery
DX: R60.0 Localized edema (principal)
CPT/HCPCS: 93971

== ENCOUNTER 2021-11-28 13:25 | Outpatient (CLI) | payer MEDICARE, SELFPAY ==
[2021-11-28 14:33] LABS: Add Urine Microscopic? YES; Appearance Urine Clear (Clear); Bacteria Urine Trace /hpf; Bilirubin Urine Negative (Negative); Blood Urine Negative (Negative); Color Urine Yellow (Yellow); Glucose Urine UA Negative (Negative); Ketones Urine Negative (Negative); Leukocyte Esterase Ur 1+ LEU/UL (Negative); Mucus Urine Rare /lpf; Nitrate Urine Negative (Negative); Protein Urine Negative (Negative); RBC Urine 0-2 /hpf (0-2); Specific Grav Ur 1.016 (1.001-1.035); Squamous Epithelial Cell Urine Many /hpf (Few); Urobilinogen Urine Negative mg/dL (<2.0); WBC Urine 0-3 /hpf
== END 2021-11-28 13:26 | disposition home or self-care (01) ==
LOC: ANHLAB 13:28
PROVIDERS: PCP Internal Medicine; Visit Provider Internal Medicine
DX: R30.0 Dysuria (principal)
CPT/HCPCS: 81001

== ENCOUNTER 2021-12-09 15:20 | Outpatient (CLI) | payer MEDICARE, SELFPAY | END 2021-12-09 15:21 | disposition home or self-care (01) | LOC: ANHLAB 15:22 | PROVIDERS: PCP Internal Medicine; Visit Provider Internal Medicine | DX: R30.0 Dysuria (principal) | CPT/HCPCS: 87086; 87088 ==

== ENCOUNTER 2022-02-14 08:33 | Outpatient (CLI) | payer MEDICARE, SELFPAY ==
--- NOTE | ~2022-02-14 | US_ITS ---
EXAMINATION: US abdomen complete DATE: 02/14/2022 09:43 INDICATION: Abdominal distention TECHNIQUE: Multiple grayscale and Doppler ultrasound images of the abdomen were obtained. COMPARISON: None available FINDINGS: Bowel gas obscures visualization of the pancreas. The visualized portions of the pancreas a re unremarkable. The liver is normal with normal echogenicity and echotexture. No surface nodularity. Normal hepatopetal flow in the main portal vein. The gallbladder is surgically absent. The common bi le duct measures 5 mm, consistent with post cholecystectomy state. The visualized portions of the aor ta and inferior vena cava are normal. The right kidney measures 10.5 x 5.0 x 4.0 cm. The left kidney measures 11.7 x 5.2 x 4.9 cm. The kidn eys demonstrate normal parenchymal echogenicity. There is no hydronephrosis. The spleen is normal in appearance and measures 10.0 cm. IMPRESSION: 1. Unremarkable postcholecystectomy ultrasound. Reviewed, dictated and finalized at location B.
== END 2022-02-14 08:34 | disposition home or self-care (01) ==
PROVIDERS: PCP Internal Medicine; Visit Provider Internal Medicine
DX: R14.0 Abdominal distension (gaseous) (principal)
CPT/HCPCS: 76700

== ENCOUNTER 2022-02-25 13:10 | Outpatient (CLI) | payer MEDICARE, SELFPAY ==
--- NOTE | ~2022-02-25 | CT_ITS ---
EXAMINATION: CT abdomen pelvis wo con DATE: 02/25/2022 13:39 INDICATION: Abdominal bloating TECHNIQUE: Computed tomography (CT) of the abdomen and pelvis was performed without intravenous contr ast. The dose-length product (DLP) was 461.43 mGy-cm. Automated exposure control and iterative recons truction technique were employed. COMPARISON: None FINDINGS: Minimal dependent atelectasis is present in the lung bases. The heart size is normal. The g allbladder is surgically absent. There is mild enlargement of the common bile duct and central intrah epatic ducts which is likely due to post cholecystectomy state. Within the limitations of noncontrast examination, the liver, spleen, pancreas, and adrenal glands are normal. The kidneys are unremarkabl e. There is calcified atherosclerosis of the aorta and many of the other arteries. Colonic diverticul osis is present without evidence of diverticulitis. The appendix is normal. There is severe lumbar sp ondylosis. IMPRESSION: 1. No CT correlate for the patient's symptoms. Reviewed, dictated and finalized at location A.
== END 2022-02-25 13:11 | disposition home or self-care (01) ==
PROVIDERS: PCP Internal Medicine; Visit Provider Internal Medicine
DX: R14.0 Abdominal distension (gaseous) (principal)
CPT/HCPCS: 74176

== ENCOUNTER 2022-08-04 10:08 | Outpatient (CLI) | payer MEDICARE, SELFPAY ==
[2022-08-04 10:35] LABS: Alanine Aminotransferase 19 U/L (6-35); Albumin Level 4.4 g/dL (3.5-5.1); Alkaline Phosphatase 111 U/L (38-126); Anion Gap 6 mmol/L (8-16); Aspartate Amino Transferase 30 U/L (14-36); Bilirubin,Total 0.5 mg/dL (0.2-1.3); Blood Urea Nitrogen 21 mg/dL (7-17); Calcium 9.3 mg/dL (8.4-10.2); Carbon Dioxide 33 mmol/L (22-30); Chloride 100 mmol/L (98-107); Cholesterol 206 mg/dL (0-200); Estimated Glomerular Filt Rate > 60; Glucose 99 mg/dL (65-110); HDL Direct 49 mg/dL; Potassium 3.5 mmol/L (3.4-5.0); Sodium 139 mmol/L (137-145); Triglycerides 122 mg/dL (<150)
[2022-08-04 10:46] LABS: LDL Cholesterol Direct 107 mg/dL
[2022-08-04 11:46] LABS: Hemoglobin A1C 5.8 % (<5.7)
== END 2022-08-04 10:09 | disposition home or self-care (01) ==
PROVIDERS: PCP Internal Medicine; Visit Provider Internal Medicine
DX: E78.5 Hyperlipidemia, unspecified (principal); R73.03 Prediabetes; I10 Essential (primary) hypertension; Z51.81 Encounter for therapeutic drug level monitoring
CPT/HCPCS: 36415; 80053; 80061; 83036

== ENCOUNTER 2023-01-06 07:35 | Outpatient (CLI) | payer MEDICARE, SELFPAY ==
[2023-01-06 08:05] LABS: Basophils Absolute Auto 0.1 K/mm3 (0.0-0.1); Eosinophils Absolute Auto 0.1 K/mm3 (0-0.3); Eosinophils Percent Auto 1.7 % (0-4.4); Hematocrit 40.8 % (37.0-47.0); Hemoglobin 13.2 g/dL (12.0-15.0); Immature Granulocyte Absolute 0.03 K/mm3 (0.00-0.031); Immature Granulocyte Percent A 0.4 % (0-0.5); Lymphocytes Absolute Auto 1.89 K/mm3 (0.9-3.2); Lymphocytes Percent Auto 26.9 % (18.3-44.2); Mean Corpuscular HGB Conc 32.4 g/dl (32-36); Mean Corpuscular Hemoglobin 28.9 pg (26-34); Mean Corpuscular Volume 89.3 fl (80-100); Mean Platelet Volume 10.2 fl (7.4-10.4); Monocytes Absolute Auto 0.8 K/mm3 (0.1-0.6); Monocytes Percent Auto 10.7 % (2.6-8.5); Neutrophils Absolute Auto 4.2 K/mm3 (1.3-6.7); Neutrophils Percent Auto 59.3 % (45.5-73.1); Platelet Count Result 322 k/mm3 (150-375); Red Blood Count 4.57 M/mm3 (4.2-5.4)
[2023-01-06 08:13] LABS: Appearance Urine Clear (Clear); Bacteria Urine 4+ /hpf; Bilirubin Urine Negative (Negative); Blood Urine Negative (Negative); Color Urine Yellow (Yellow); Glucose Urine UA Negative (Negative); Ketones Urine Negative (Negative); Leukocyte Esterase Ur 1+ LEU/UL (Negative); Nitrate Urine Negative (Negative); Non Pathogenic Casts 0-2; Protein Urine Negative (Negative); RBC Urine 0-2 /hpf (0-2); Specific Grav Ur 1.014 (1.001-1.035); Squamous Epithelial Cell Urine Occasional /hpf (Few); Urobilinogen Urine 0.2 mg/dL (<2.0); pH Urine 5.5 (5.0-9.0)
[2023-01-06 08:16] LABS: Alanine Aminotransferase 18 U/L (6-35); Albumin Level 4.5 g/dL (3.5-5.1); Alkaline Phosphatase 114 U/L (38-126); Anion Gap 6 mmol/L (8-16); Aspartate Amino Transferase 23 U/L (14-36); Bilirubin,Total 0.6 mg/dL (0.2-1.3); Blood Urea Nitrogen 20 mg/dL (7-17); Calcium 9.1 mg/dL (8.4-10.2); Carbon Dioxide 33 mmol/L (22-30); Chloride 101 mmol/L (98-107); Cholesterol 142 mg/dL (0-200); Estimated Glomerular Filt Rate > 60; Glucose 95 mg/dL (65-110); HDL Direct 55 mg/dL; Potassium 3.3 mmol/L (3.4-5.0); Sodium 140 mmol/L (137-145); Triglycerides 68 mg/dL (<150)
[2023-01-06 08:16] LABS: Add Urine Microscopic? YES
[2023-01-06 08:27] LABS: LDL Cholesterol Direct 56 mg/dL
== END 2023-01-06 07:36 | disposition home or self-care (01) ==
PROVIDERS: Nurse Practitioner Gerontology; PCP Family Medicine; Visit Provider Family Medicine
DX: I10 Essential (primary) hypertension (principal); E78.2 Mixed hyperlipidemia; R30.0 Dysuria
CPT/HCPCS: 36415; 80053; 80061; 81001; 85025; 87077; 87086; 87186

== ENCOUNTER 2023-01-09 09:32 | Outpatient (CLI) | payer MEDICARE, SELFPAY ==
--- NOTE | 2023-01-09 10:44 | ECG_ITS ---
Measurements Intervals [place] Rate: 64 P: 39 MI: 163 QRS: -5 QRSD: 90 T: 22 QT: 407 QTc: 422 Interpretive Statements SINUS RHYTHM POOR R WAVE PROGRESSION, ANTERIOR LEADS BASELINE ARTIFACT- I, II, III, AVR, AVL, AVF, V4-V5 BORDERLINE ECG NO PREVIOUS ECG AVAILABLE FOR COMPARISON Electronically Signed On 01-09-2023 12:38:51 CDT by Carlos Bowens D.O.
[2023-01-09 11:19] LABS: Hemoglobin A1C 5.8 % (<5.7); Urine Cotinine NEGATIVE
== END 2023-01-09 09:33 | disposition home or self-care (01) ==
PROVIDERS: PCP Family Medicine; Visit Provider Orthopaedic Surgery
DX: M17.11 Unilateral primary osteoarthritis, right knee (principal); Z01.818 Encounter for other preprocedural examination; R94.31 Abnormal electrocardiogram [ECG] [EKG]
CPT/HCPCS: 80307; 83036; 87081; 87147; 87181; 87186; 93005

== ENCOUNTER 2023-01-15 08:56 | Outpatient (CLI) | payer MEDICARE, SELFPAY ==
[2023-01-15 10:21] LABS: Appearance Urine Clear (Clear); Bacteria Urine None Seen /hpf; Bilirubin Urine Negative (Negative); Blood Urine Negative (Negative); Color Urine Yellow (Yellow); Glucose Urine UA Negative (Negative); Ketones Urine Negative (Negative); Leukocyte Esterase Ur Trace LEU/UL (Negative); Nitrate Urine Negative (Negative); Non Pathogenic Casts 0-2; Protein Urine Negative (Negative); RBC Urine 0-2 /hpf (0-2); Specific Grav Ur 1.014 (1.001-1.035); Squamous Epithelial Cell Urine Few /hpf (Few); Urobilinogen Urine 0.2 mg/dL (<2.0); WBC Urine 0-5 /hpf; pH Urine 5.5 (5.0-9.0)
[2023-01-15 10:29] LABS: Add Urine Microscopic? YES
== END 2023-01-15 08:57 | disposition home or self-care (01) ==
LOC: ANHLAB 08:59
PROVIDERS: PCP Family Medicine; Visit Provider Physician Assistant
DX: R30.0 Dysuria (principal)
CPT/HCPCS: 81001

== ENCOUNTER 2023-03-05 08:58 | Outpatient (CLI) | payer MEDICARE, SELFPAY ==
[2023-03-05 10:03] LABS: Basophils Absolute Auto 0.1 K/mm3 (0.0-0.1); Basophils Percent Auto 0.9 % (0.2-1.2); Eosinophils Absolute Auto 0.2 K/mm3 (0-0.3); Eosinophils Percent Auto 1.9 % (0-4.4); Hematocrit 41.7 % (37.0-47.0); Hemoglobin 13.4 g/dL (12.0-15.0); Immature Granulocyte Absolute 0.02 K/mm3 (0.00-0.031); Immature Granulocyte Percent A 0.2 % (0-0.5); Lymphocytes Absolute Auto 2.39 K/mm3 (0.9-3.2); Lymphocytes Percent Auto 28.2 % (18.3-44.2); Mean Corpuscular HGB Conc 32.1 g/dl (32-36); Mean Corpuscular Hemoglobin 28.8 pg (26-34); Mean Corpuscular Volume 89.7 fl (80-100); Mean Platelet Volume 10.1 fl (7.4-10.4); Monocytes Absolute Auto 0.7 K/mm3 (0.1-0.6); Monocytes Percent Auto 8.5 % (2.6-8.5); Neutrophils Absolute Auto 5.1 K/mm3 (1.3-6.7); Neutrophils Percent Auto 60.3 % (45.5-73.1); Platelet Count Result 337 k/mm3 (150-375); Red Blood Count 4.65 M/mm3 (4.2-5.4); Red Cell Distribution Width 13.2 % (11.5-14.5); White Blood Count 8.5 K/mm3 (4.5-10.0)
[2023-03-05 10:15] LABS: Albumin Level 4.6 g/dL (3.5-5.1); Anion Gap 7 mmol/L (8-16); Blood Urea Nitrogen 22 mg/dL (7-17); Calcium 9.4 mg/dL (8.4-10.2); Carbon Dioxide 35 mmol/L (22-30); Chloride 98 mmol/L (98-107); Estimated Glomerular Filt Rate > 60; Glucose 96 mg/dL (65-110); Potassium 3.5 mmol/L (3.4-5.0); Sodium 140 mmol/L (137-145)
[2023-03-05 10:18] LABS: Urine Cotinine NEGATIVE
== END 2023-03-05 08:59 | disposition home or self-care (01) ==
LOC: ANHSURGERY 09:02
PROVIDERS: PCP Family Medicine; Visit Provider Orthopaedic Surgery
DX: M17.11 Unilateral primary osteoarthritis, right knee (principal); Z01.818 Encounter for other preprocedural examination
CPT/HCPCS: 80048; 80307; 82040; 85025; 86850; 86900; 86901

== ENCOUNTER 2023-03-11 01:24 | Day surgery (SDC) | payer MEDICARE, SELFPAY ==
--- NOTE | 2023-01-09 10:11 | PC.NURSE ---
Report to the Outpatient Waiting Room, entrance under the green pavilion located off [facility], at time _1000 on date ___01/28/23____. Planned Procedure Time: ___1200 . Time changes happen often and if your time is changed the preop area will call you the afternoon before. - You and your visitor will be asked to self-screen and do not enter if you have any COVID symptoms. - Only one visitor is requested with a max of two and NO children visitors are allowed at this time. - The patient visitor may be requested to leave or wait in car when not with patient due to distancing restrictions. - A mask is optional within the hospital at this time. Patients may have clear liquids (water, carbonated beverages, clear teas, apple juice) until 3 hours prior to surgery with a maximum of 20 ounces. - No food from midnight until time of surgery - Infants may have breast milk until 4 hours before surgery, formula 6 hours prior to surgery. - Children will be allowed to drink immediately following surgery. If applicable, please bring a bottle or sippy cup to assist with drinking. Juice, water, soda, and popsicles are readily available. For infants on formula, please bring formula the day of surgery. Pacifiers are allowed. Take the following medications with a SIP of water the morning of surgery: ____HYDRALAZINE DO NOT STOP ANY OF YOUR OTHER PRESCRIPTION MEDICATIONS PRIOR TO SURGERY ?EXCEPT THE FOLLOWING Medications to discontinue per physician NONE Please no make-up, nail icelandic, hairspray, perfume, deodorant, or body powder the day of surgery. No jewelry (including any body piercings) or valuables the day of surgery, leave them at home. Please take a shower or bath the night before, or the morning of, surgery with an antibacterial soap. Wear comfortable, loose fitting clothing. Children are encouraged to wear pajamas. - Jewelry must be removed prior to entering the operating room. Rings and piercings that are not removed may be cut off. - The hospital will not accept responsibility for valuables. - Please leave all valuables, including medications, at home the day of surgery. If you are going home after surgery, a licensed sprinkler truck driver must drive you home. - NO public transportation without another adult if you receive anesthesia. - We recommend that an adult stay with you for 24 hours following discharge. - We also recommend that you do not drive, make important decision, drink alcoholic beverages, or take any drugs that were not prescribed by your health care provider for at least 24 hours after your discharge time. For Pediatric surgeries, we recommend two adults accompany the child home. Follow any additional instructions given to you from your surgeon. If you or anyone in your household have experienced Covid symptoms in the past week, please notify your surgeon or the nurse liaison at the phone number below for possible testing. VERBAL AND WRITTEN instructions given to _PATIENT and asked if any additional questions and then verbalized understanding. Patient advised to call surgeon office or pre surgery nurse liaison [phone] if any additional questions.
[2023-01-09 10:39] VITALS: BP 142/65; PULSE 64; RESP 18; TEMP 36.6; O2SAT 97; BMI 27.2
--- NOTE | 2023-03-02 15:35 | PC.NURSE ---
Report to the Outpatient Waiting Room, entrance under the green pavilion located off [facility], at time ___0600____ on date ___03/11/23____. Planned Procedure Time: 729 . Time changes happen often and if your time is changed the preop area will call you the afternoon before. - You and your visitor will be asked to self-screen and do not enter if you have any COVID symptoms. - A mask is optional within the hospital at this time. Patients may have clear liquids (water, carbonated beverages, clear teas, apple juice) until 3 hours prior to surgery with a maximum of 20 ounces. - No food from midnight until time of surgery - Infants may have breast milk until 4 hours before surgery, infant formula 6 hours prior to surgery. - Children will be allowed to drink immediately following surgery. If applicable, please bring a bottle or sippy cup to assist with drinking. Juice, water, soda, and popsicles are readily available. For infants on formula, please bring formula the day of surgery. Pacifiers are allowed. Take the following medications with a SIP of water the morning of surgery: __HYDRALAZINE DO NOT STOP ANY OF YOUR OTHER PRESCRIPTION MEDICATIONS PRIOR TO SURGERY ?EXCEPT THE FOLLOWING Medications to discontinue per physician NONE Date to take last dose Please no make-up, nail persian, hairspray, perfume, deodorant, or body powder the day of surgery. No jewelry (including any body piercings) or valuables the day of surgery, leave them at home. Please take a shower or bath the night before, or the morning of, surgery with an antibacterial soap. Wear comfortable, loose fitting clothing. Children are encouraged to wear pajamas. - Jewelry must be removed prior to entering the operating room. Rings and piercings that are not removed may be cut off. - The hospital will not accept responsibility for valuables. - Please leave all valuables, including medications, at home the day of surgery. If you are going home after surgery, a licensed bulk truck driver must drive you home. - NO public transportation without another adult if you receive anesthesia. - We recommend that an adult stay with you for 24 hours following discharge. - We also recommend that you do not drive, make important decision, drink alcoholic beverages, or take any drugs that were not prescribed by your health care provider for at least 24 hours after your discharge time. For Pediatric surgeries, we recommend two adults accompany the child home. Follow any additional instructions given to you from your surgeon. If you or anyone in your household have experienced Covid symptoms in the past week, please notify your surgeon or the nurse liaison at the phone number below for possible testing. Telephone instructions given to _PATIENT and asked if any additional questions and then verbalized understanding. Patient advised to call surgeon office or pre surgery nurse liaison [phone] if any additional questions.
[2023-03-02 15:45] VITALS: BMI 26.5
--- NOTE | 2023-03-02 15:48 | PC.NURSE ---
PT STATES NO CHANGE IN HEALTH HX SINCE LAST INTERVIEW ON 01/09/23
--- NOTE | 2023-03-09 16:25 | PM.IMHP ---
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 She underwent left total knee arthroplasty approximately 1 year ago. She has severe valgus knee on the left. She underwent total knee arthroplasty and had uneventful recovery. She is very happy with her results. She has the same arthritis pattern in the right knee. It is extremely painful and symptomatic for a this point. It is affecting her daily lifestyle. She feels this point she is ready to proceed with total knee arthroplasty on right rather continue nonsurgical treatment. Review of Systems Review of Systems: All systems reviewed & are unremarkable except as noted in HPI and below PMFSH Past Medical History Medical History Benign essential hypertension Bilateral breast cysts Chronic right shoulder pain Diarrhea History of urinary urgency On emt intermediate drug therapy Osteoarthritis of both knees Pain of left thumb Surgical History Surgical History History of tonsillectomy Hx laparoscopic cholecystectomy Hx of total knee arthroplasty Left Family History Family History Father Hypertension Mother Hypertension Social History Social History Social History: Smoking status: Never smoker Second hand tobacco smoke exposure: No Additional smoking assessment comments: DENIES ANY FORM OF TOBACCO USE Alcohol intake: never Substance use: never Substance use type: does not use Lack of Transportation: No Lack of Food: Never True Current Housing: Decline to Answer Concerned About Future Housing: No Difficulty Paying Gas/Electric Bills: No Difficulty Paying for Meds: No Currently Unemployed: No Education: High School Diploma/GED Difficulty w/ Childcare or Family Care: No Living arrangements: with family Occupation/Education: retired Gender identity (if verbalized by the patient): Female Sexual Orientation (if Verbalized by the Patient): Straight or Heterosexual Spiritual care concerns: No Meds Home Medications and Allergies Home Medications Medication Instructions Recorded Confirmed Type candesartan 32 1 tablet PO QAM #90 tabs 09/30/22 03/02/23 Rx mg-hydrochlorothiazide 12.5 mg tablet rosuvastatin 5 mg tablet 5 mg PO DAILY #90 tabs 09/30/22 03/02/23 Rx hydralazine 50 mg tablet 50 mg PO TID #270 tabs 12/30/22 03/02/23 Rx acetaminophen 500 mg capsule 500 mg PO Q6H PRN Pain 01/09/23 03/02/23 History triamcinolone acetonide 0.1 % 1 applic topical DAILY PRN 01/20/23 03/02/23 Rx topical cream pruritus #30 grams Allergies Allergy/AdvReac Type Severity Reaction Status Date / Time naproxen Allergy Mild Hives Verified 03/02/23 15:32 niacin Allergy Mild Hives Verified 03/02/23 15:32 nitrofurantoin AdvReac Mild Diarrhea Verified 03/02/23 15:32 potassium chloride AdvReac Mild BLOODY Verified 03/02/23 15:32 STOOL/CONSTIPATION Exam Narrative: 77-year-old female very alert pleasant. She is 5 ft 2 and 159 lb. Right knee range of motion is from 3-130 degrees. She has a moderate effusion. Obvious valgus alignment. MCL has some laxity but does have an endpoint. Hip range of motion is full without discomfort, negative Stinchfield maneuver. Normal quad strength. 2+ dorsalis pedis pulse and absent posterior artery pulse. Normal sensation left lower extremity without edema. Resp: Auscultation: clear to auscultation bilaterally Cardio: Rate: regular rate Rhythm: regular rhythm Assessment and Plan Assessment and plan (1) Right knee DJD: Code(s): M17.11 - Unilateral primary osteoarthritis, right knee Status: Acute Plan
--- NOTE | 2023-03-10 14:52 | WPDANESEPPF ---
Anes - Initial Pre Proc Eval Procedure: Operation Date: 03/11/23 07:30 Proposed Procedures p Right Total Knee Arthroplasty - Umang Ndiaye MD Date/Time: 03/10/23 14:52 Surgeon: Umang Ndiaye MD Pre Op Diagnosis: Grade III Valgus oa right knee Patient Data Age: 77 Gender: F Height: 1.66 m Weight: 73.5 kg Last Vital Signs Temp 97.8 F 01/09/23 10:39 Pulse 64 01/09/23 10:39 Resp 18 01/09/23 10:39 BP 142/65 H 01/09/23 10:39 Pulse Ox 97 01/09/23 10:39 O2 Del Method Room Air 01/09/23 10:39 Allergies Allergy/AdvReac Type Severity Reaction Status Date / Time naproxen Allergy Mild Hives Verified 03/11/23 07:02 niacin Allergy Mild Hives Verified 03/11/23 07:02 nitrofurantoin AdvReac Mild Diarrhea Verified 03/11/23 07:02 potassium chloride AdvReac Mild BLOODY Verified 03/11/23 07:02 STOOL/CONSTIPATION Home Medications Medication Instructions Recorded Confirmed Type candesartan 32 1 tablet PO QAM #90 tabs 09/30/22 03/11/23 Rx mg-hydrochlorothiazide 12.5 mg tablet rosuvastatin 5 mg tablet 5 mg PO DAILY #90 tabs 09/30/22 03/02/23 Rx hydralazine 50 mg tablet 50 mg PO TID #270 tabs 12/30/22 03/11/23 Rx acetaminophen 500 mg capsule 500 mg PO Q6H PRN Pain 01/09/23 03/02/23 History triamcinolone acetonide 0.1 % 1 applic topical DAILY PRN 01/20/23 03/02/23 Rx topical cream pruritus #30 grams Patient hx anesthesia problems: post op nausea/vomiting Family hx anesthesia problems: none Results Review: All pre-operative results and documents have been reviewed as part of the pre-operative evaluation. [facility] Past Medical History Medical History Benign essential hypertension Bilateral breast cysts Chronic right shoulder pain Diarrhea History of urinary urgency On mcc drug therapy Osteoarthritis of both knees Pain of left thumb Surgical History Surgical History History of tonsillectomy Hx laparoscopic cholecystectomy Hx of total knee arthroplasty Left Family History Family History Father Hypertension Mother Hypertension Social History Social History Social History: Smoking status: Never smoker Second hand tobacco smoke exposure: No Additional smoking assessment comments: DENIES ANY FORM OF TOBACCO USE Alcohol intake: never Substance use: never Substance use type: does not use Lack of Transportation: No Lack of Food: Never True Current Housing: Decline to Answer Concerned About Future Housing: No Difficulty Paying Gas/Electric Bills: No Difficulty Paying for Meds: No Currently Unemployed: No Education: High School Diploma/GED Difficulty w/ Childcare or Family Care: No Living arrangements: with family Occupation/Education: retired Gender identity (if verbalized by the patient): Female Sexual Orientation (if Verbalized by the Patient): Straight or Heterosexual Spiritual care concerns: No Anes - Eval Final PreProcedure Day of Procedure 03/10/23 14:52 Patient weight: normal Heart: regular rate and rhythm Lungs: clear to auscultation Airway: Mallampati scale class III Neurological: alert and oriented Last oral intake: >/= 8 hours ASA classification: III Emergent: no Anesthetic plan: proceed Anesthesia type and monitoring: general ETT and standard monitoring Results Review: All pre-operative results and documents have been reviewed as part of the pre-operative evaluation. Informed Consent: The patient's anesthetic plan and its attendant risks and benefits were discussed with the patient/family/POA. Questions were solicited and answers provided to the satisfaction of the patient/family/POA.
[2023-03-11] VITALS (13 sets, daily range): BP systolic 108–150; BP diastolic 49–76; PULSE 67–105; RESP 13–20; TEMP 35.8–36.6; O2SAT 93–99
--- NOTE | ~2023-03-11 | XR_ITS ---
EXAMINATION: [id number] DATE: 03/11/2023 11:18 INDICATION: Total right knee arthroplasty. Postop. TECHNIQUE: 2 views of right knee were obtained. COMPARISON: None. FINDINGS: There is a total right knee arthroplasty in near-anatomic alignment with patellar resurfaci ng. No fracture. There is gas in the knee joint and soft tissues, consistent with recent surgery. IMPRESSION: 1. Total right knee arthroplasty in near-anatomic alignment. Reviewed, dictated and finalized at location A.
[2023-03-11] MEDS: VANCOMYCIN 1,000 MG/NS 250 ML BAG 250 MG IVPB (06:30)
[2023-03-11] MEDS: TRANEXAMIC ACID 1,000MG/ISO100 1,000 MG/100 ML BAG 200 MG IVPB (06:30)
[2023-03-11] MEDS: LACTATED RINGERS 1,000 ML 30 ML IV CONT (06:30)
[2023-03-11] MEDS: ACETAMINOPHEN 500 MG TABLET 1000 MG PO ×4 (06:30→23:26)
--- NOTE | 2023-03-11 07:06 | WPDHPUPDATE1 ---
History and Physical Update Update Date/Time: 03/11/23 07:06 History and Physical has been reviewed, including an updated exam of the patient. There are NO changes in the patient's condition. Risks, benefits, and alternatives have been discussed and questions answered. Patient agrees to proceed with procedure.
[2023-03-11] MEDS: ceFAZolin 2 GM/D5W 50 ML 2 GM/50 ML BAG IVPB (07:37)
[2023-03-11] MEDS: ceFAZolin SODIUM 1 GM VIAL 3 GM (08:20)
[2023-03-11] MEDS: GENTAMICIN BONE CEMENT REFOBACIN 1 EACH TOPICAL (08:21)
[2023-03-11] MEDS: TRANEXAMIC ACID 1,000 MG/10 ML AMPUL 1000 MG IV PUSH (10:44)
[2023-03-11] MEDS: ceFAZolin SODIUM 1 GM VIAL 2 GM IV PUSH (10:44)
--- NOTE | 2023-03-11 10:59 | W.PM.PROC2 ---
Procedure Note - Detailed Date of Procedure 03/11/23 Pre-op Diagnosis Grade III Valgus oa right knee Post-op Diagnosis Same Procedure Performed Right total knee arthroplasty with constrained Biomet 360 SSK implants Surgeon Umang Ndiaye MD [employer] Jossie Anesthesia General Description of Procedure Patient was brought to the operating room general anesthesia was administered. The right knee was prepped draped fashion. Obvious valgus deformity which she did not have a flexion contracture knee seemed to come out to 0? perhaps a degree of hyperextension. She received 2 g of Ancef weight based vancomycin and 1 g of tranexamic acid preoperatively. Limb was exsanguinated tourniquet elevated to 250 mmHg. A 7 in longitudinal midline incision was used and a vastus medialis splitting approach utilized splitting the vastus medialis at the superior pole of patella. Infrapatellar and suprapatellar fat pads were excised and a quadriceps synovectomy carried out. The patella measured 21.5 mm in thickness and was cut to 15 mm. Protector cap applied. A guide myles was inserted down the femoral canal after aspiration of canal contents using the 4 degree valgus cutting bushing, 12 mm of bone removed the distal femur. This removed about 4 or 5 mm from lateral side. Next the tibial plateau was cut making a cut that was just flush with the posterior defect in the lateral tibial plateau from wear. Meniscus remnants were excised PCL was recessed. No posterior capsule release was performed. Femoral sizing guide was applied at 5? of external rotation which matched Whitesides line. Posterior referencing pinholes were made and we applied the 62.5 cutting block which is going to notch. We applied the 65 mm cutting block made the anterior cut and saw that we would need to introduce a little bit of flexion to the distal femur to avoid notching and this was performed. We then applied the 62.5 cutting block and stabilize this additionally with the threaded pins and this gave a flush anterior cortex cut. Posterior and chamfer cuts were made. We trialed with the CR femur and it was too tight in flexion with a 10 CR trial therefore we removed additional 2 mm of bone from the tibial plateau. We increased this posterior slope slightly as well as I thought our 1st cut was under sloped little bit. Our goal was to make a cut perpendicular to the axis of the tibia or perhaps 1 or 2? of posterior slope. This gave us appropriate stability in flexion on the lateral side with about a mm of opening at 90? laterally. There was about 4 mm of medial opening. The knee came out to extension at this time with 1 mm lateral opening no hyperextension 10 mm medial opening. We did not release the lateral capsule the IT band for the lateral collateral or popliteus tendon. The tibia was sized to a 67 vanguard and punched for the 80 mm x 10 mm diameter finned stem and the assembled trial component placed. The femur was prepared for the SSK component. The [employer] Reamer was used and we prepared the canal with a 14 mm Reamer anticipating a 40 mm x 12 mm cemented myles on the SSK femoral component. The intercondylar box was cut and we is assembled the trial femoral component using the 360 trial and trialed with the 10 mm poly and SSK post. This allowed full extension with no hyperextension negative bounce 1 mm of opening laterally and extension 2 or 3 medially. There is appropriate stability anterior inside sales executive all positions and gravity flexion was to 140?. The patella was sized to the 31 thin lug holes drilled composite thickness 21 mm. Bone quality of the patella was good. Patellar tracking was central through range of motion. We had put the tourniquet down at 90 minutes and after preparing the denser areas of bone with a step drill and after assembling the real components on the back table, the limb was exsanguinated tourniquet elevated to 250 mmHg and the bony surfaces thoroughly irrigated and dried. Two [facility]
--- NOTE | 2023-03-11 11:22 | P.OPB_ITS ---
Procedure Note - Brief Procedure Note - Brief Date of procedure: 03/11/23 Grade III Valgus oa right knee Procedure performed: Right total knee arthroplasty Surgeon: BHUMIKA Muñoz Description of procedure: 77-year-old female underwent right total knee arthroplasty on 03/11. I was involved in the procedure including positioning the patient on your table 1st a ssisting to time surgery. Total time spent was 3-1/2 hours
[2023-03-11] MEDS: fentaNYL CITRATE INJ (*CRX) 100 MCG/2 ML VIAL 25 MCG IV PUSH ×6 (11:29→12:16)
--- NOTE | 2023-03-11 13:07 | ADMGEN ---
This patient, Hoa Miranda, was admitted to 3 [facility] Surg Room 306-01. Patient/family oriented to hospital policies and general routines including ID bracelet, bed and alarms, visiting hours, pain management, procedures, bathroom and other care routines, personal items, smoking policy, room service/diet, and visiting hours. Information on how to activate the Rapid Response Team has been discussed. Patient/Family are encouraged to report perceived risks to care and to ask questions if they do not understand what they are told or what they should do.
[2023-03-11] MEDS: oxyCODONE HCL (*CRX) 5 MG TAB IR PO ×3 (13:16→20:38)
[2023-03-11] MEDS: SODIUM CHLORIDE 0.9% IV 1,000 ML 125 ML IV CONT (15:59)
[2023-03-11] MEDS: ceFAZolin 1 GM/NS 50 ML 1 GM/50 ML BAG IVPB ×2 (15:59→23:26)
[2023-03-11] MEDS: hydrALAZINE HCL 50 MG TABLET PO (16:05)
--- NOTE | 2023-03-11 16:29 | PC.NURSE ---
Patient's 1300 hydralazine was not given due to not receiving the medication until 1600. Left a message to get the medication around 1300 and it was never received through the tube system.
[2023-03-11] MEDS: VANCOMYCIN 1,000 MG/NS 250 ML 1,000 MG/250 ML BAG 250 MG IVPB (17:14)
[2023-03-11] MEDS: FAMOTIDINE 20 MG TABLET PO (20:37)
[2023-03-11] MEDS: SENNA/DOCUSATE SODIUM TABLET 2 TAB PO (20:38)
--- NOTE | 2023-03-11 21:24 | PC.NURSE ---
pt has voided x2 this shift, indeterminate amount has missed hat, and unsure if voiding enough, BHUMIKA Mcdonough updated, orders to straight cath pt is hesitant r/t prolapse bladder will re-check post-residual void 1st post residual void was 390 ml
--- NOTE | 2023-03-11 22:33 | WPDCN ---
Assessment and Plan Assessment and plan (1) Right knee DJD: Code(s): M17.11 - Unilateral primary osteoarthritis, right knee Status: Acute Assessment and Plan: Postoperative day 0 status post right total knee arthroplasty. Wound care, pain control, and DVT prophylaxis deferred to primary service. Agree with PT/OT. Check baseline labs in a.m. (2) Urinary retention: Code(s): R33.9 - Retention of urine, unspecified Status: Acute Assessment and Plan: Straight catheterization x1. Bladder scan Q shift to rule out ongoing issues. (3) Benign essential hypertension: Code(s): I10 - Essential (primary) hypertension Status: Acute Assessment and Plan: Blood pressures were reviewed and they have been stable. Continue antihypertensives and monitor. (4) Hyperlipidemia: Code(s): E78.5 - Hyperlipidemia, unspecified Status: Acute Assessment and Plan: Continue statin check LFTs in a.m. Plan Thank you for allowing us to participate in this patient's care. Please do not hesitate to contact us with any questions. HPI Data of Consult Date/Time: 03/11/23 18:30 Requesting Physician: Umang Ndiaye MD Consult Narrative Reason for consult: Postoperative medical management. Narrative: This is a very pleasant 77-year-old female with osteoarthritis, hypertension, hyperlipidemia, and pelvic organ prolapse whom the hospitalist service has been consulted for help managing her medical conditions postoperatively. She presented today for an elective right total knee arthroplasty due to ongoing pain despite conservative outpatient treatment. Her surgery was performed under general anesthesia with no immediate complications documented and an estimated blood loss of 200 mL. Her pain is pretty well controlled and she has not had any postoperative nausea or vomiting. She has not been able to urinate since surgery however and she is worried that is going to cause problems given history of pelvic organ prolapse. She does not really have the need to urinate at this time. She denies fever, chills, sweats, chest pain, and shortness of breath. She also denies paresthesias, skin color, and temperature changes distal to the surgical site. No personal or family history of venous thromboembolism. On discharge she will go home and her will helped care for her. They have a special needs daughter who lives at home with them. Review of Systems Review of Systems: Twelve systems were reviewed and are negative except for as per HPI pleural PMFSH Past Medical History Medical History (Updated 03/11/23 @ 22:40 by Mildred Mcdonough PA-C) Benign essential hypertension Bladder prolapse Hyperlipidemia Osteoarthritis of both knees Scoliosis Surgical History Surgical History (Updated 03/11/23 @ 22:37 by Mildred Mcdonough PA-C) History of arthroplasty of left knee (11/13/21) History of arthroplasty of right knee (03/11/23) History of benign breast biopsy History of colonoscopy with polypectomy History of dilation and curettage History of laparoscopic cholecystectomy History of tonsillectomy Family History Family History Father Hypertension Mother Hypertension Social History Social History (Updated 03/11/23 @ 22:38 by Mildred Mcdonough PA-C) Social History: Surrogate medical decision maker: Lei Miranda, spouse. Code status: Full code. Smoking status: Never smoker Second hand tobacco smoke exposure: No Alcohol intake: never Substance use: never Substance use type: does not use Lack of Transportation: No Lack of Food: Never True Current Housing: I Have Housing Concerned About Future Housing: No Difficulty Paying Gas/Electric Bills: No Difficulty Paying for Meds: No Currently Unemployed: No Education: High School Diploma/GED Difficulty w/ Childcare or Family Care: No
[2023-03-12 00:05] VITALS: BP 109/70; PULSE 80; RESP 16; TEMP 35.8; O2SAT 90
[2023-03-12] MEDS: oxyCODONE HCL (*CRX) 5 MG TAB IR PO ×3 (00:58→09:20)
[2023-03-12 04:00] VITALS: BP 112/54; PULSE 69; RESP 16; TEMP 36.3; O2SAT 94
[2023-03-12] MEDS: ACETAMINOPHEN 500 MG TABLET 1000 MG PO ×2 (05:00→11:47)
[2023-03-12] MEDS: VANCOMYCIN 1,000 MG/NS 250 ML 1,000 MG/250 ML BAG 250 MG IVPB (05:26)
[2023-03-12 05:57] LABS: Basophils Percent Auto 0.4 % (0.2-1.2); Eosinophils Percent Auto 0.3 % (0-4.4); Hematocrit 29.1 % (37.0-47.0); Hemoglobin 9.4 g/dL (12.0-15.0); Immature Granulocyte Absolute 0.04 K/mm3 (0.00-0.031); Immature Granulocyte Percent A 0.4 % (0-0.5); Lymphocytes Absolute Auto 1.49 K/mm3 (0.9-3.2); Lymphocytes Percent Auto 14.2 % (18.3-44.2); Mean Corpuscular HGB Conc 32.3 g/dl (32-36); Mean Corpuscular Hemoglobin 28.9 pg (26-34); Mean Corpuscular Volume 89.5 fl (80-100); Mean Platelet Volume 9.6 fl (7.4-10.4); Monocytes Absolute Auto 1.2 K/mm3 (0.1-0.6); Monocytes Percent Auto 11.2 % (2.6-8.5); Neutrophils Absolute Auto 7.7 K/mm3 (1.3-6.7); Neutrophils Percent Auto 73.5 % (45.5-73.1); Platelet Count Result 242 k/mm3 (150-375); Red Blood Count 3.25 M/mm3 (4.2-5.4); Red Cell Distribution Width 13.5 % (11.5-14.5); White Blood Count 10.5 K/mm3 (4.5-10.0)
[2023-03-12 06:20] LABS: Alanine Aminotransferase 23 U/L (6-35); Albumin Level 3.3 g/dL (3.5-5.1); Alkaline Phosphatase 69 U/L (38-126); Anion Gap 4 mmol/L (8-16); Aspartate Amino Transferase 35 U/L (14-36); Bilirubin,Total 0.3 mg/dL (0.2-1.3); Blood Urea Nitrogen 19 mg/dL (7-17); Calcium 7.6 mg/dL (8.4-10.2); Carbon Dioxide 31 mmol/L (22-30); Chloride 99 mmol/L (98-107); Estimated CRCL calculation 67 ml/min; Estimated Glomerular Filt Rate > 60; Glucose 110 mg/dL (65-110); Potassium 3.4 mmol/L (3.4-5.0); Sodium 134 mmol/L (137-145)
--- NOTE | 2023-03-12 07:29 | PM.PNORT ---
Subjective Subjective Date/Time Seen: 03/12/23 07:29 Interval history: Postop day 1 patient is alert. She is afebrile vital signs are stable. Pain is well controlled. She was up walking with therapy yesterday. Dressing is dry intact. Neurovascularly she is intact. She did require straight cath last night has been urinating since that time. She will go back on a diuretic today. Morning labs are noted. Overall patient is doing well. She will do morning therapy and if she is doing well at that point she will be discharged home. Objective Data Vital Signs Vital Signs: Vital Signs - 24 hr 03/11/23 11:16 03/11/23 11:20 03/11/23 11:30 Temperature 36.3 C L Pulse Rate 102 H 105 H Respiratory Rate 14 14 Blood Pressure 142/62 H 128/76 Pulse Oximetry 96 95 95 Oxygen Delivery Simple Face Mask Simple Face Mask Simple Face Mask Oxygen Flow Rate 8 8 8 03/11/23 11:45 03/11/23 12:00 03/11/23 12:15 Temperature Pulse Rate 72 78 69 Respiratory Rate 13 13 16 Blood Pressure 129/59 L 124/49 L 121/49 L Pulse Oximetry 93 93 93 Oxygen Delivery Nasal Cannula Nasal Cannula Nasal Cannula Oxygen Flow Rate 2 2 2 03/11/23 12:22 03/11/23 12:40 03/11/23 13:15 Temperature 36.6 C 36.3 C L Pulse Rate 67 72 78 Respiratory Rate 16 20 16 Blood Pressure 108/63 121/56 L 122/55 L Pulse Oximetry 99 94 96 Oxygen Delivery Nasal Cannula Oxygen Flow Rate 2 03/11/23 14:12 03/11/23 14:28 03/11/23 18:12 Temperature 36.6 C 36.4 C Pulse Rate 90 80 Respiratory Rate 16 16 Blood Pressure 131/55 L 138/61 Pulse Oximetry 95 96 Oxygen Delivery Room Air Oxygen Flow Rate 03/11/23 20:00 03/12/23 00:05 03/12/23 04:00 Temperature 35.8 C L 35.8 C L 36.3 C L Pulse Rate 82 80 69 Respiratory Rate 18 16 16 Blood Pressure 118/61 109/70 112/54 L Pulse Oximetry 96 90 94 Oxygen Delivery Oxygen Flow Rate Intake/Output Intake/Output: Intake & Output 03/09/23 03/10/23 03/11/23 03/12/23 23:59 23:59 23:59 23:59 Intake Total 1240 350 Output Total 300 Balance 1240 50 Meds/Results Medications: Active Medications Generic Name Dose Route Start Last Admin Trade Name Freq PRN Reason Stop Dose Admin Acetaminophen 1,000 mg 03/11/23 13:00 03/12/23 05:00 Acetaminophen 500 Mg Tablet PO 1,000 mg Q6HR MARILU Administration Apixaban 2.5 mg 03/12/23 09:00 Apixaban 2.5 Mg Tablet PO 03/23/23 21:01 Q12HR MARILU Candesartan Cilexetil 32 mg 03/12/23 09:00 Candesartan Cilexetil 16 Mg Tablet PO QAM MARILU Diphenhydramine HCl 25 mg 03/11/23 12:27 Diphenhydramine Hcl Inj 50 Mg/Ml Vial IV PUSH Q6H PRN Itching Doxycycline Hyclate 100 mg 03/12/23 10:00 Doxycycline Hyclate 100 Mg Tablet PO Q12HR PENDING SALE TO [facility] Famotidine 20 mg 03/11/23 21:00 03/11/23 20:37 Famotidine 20 Mg Tablet PO 20 mg Q12HR PENDING SALE TO [facility] Administration Hydralazine HCl 50 mg 03/11/23 13:00 03/11/23 16:05 Hydralazine Hcl 50 Mg Tablet PO 50 mg TID PENDING SALE TO [facility] Administration Hydrochlorothiazide 12.5 mg 03/12/23 09:00 Hydrochlorothiazide 12.5 Mg Capsule PO 04/11/23 08:59 QAM PENDING SALE TO [facility] Cefazolin Sodium 1 gm in 50 mls @ 100 mls/hr 03/11/23 16:00 03/11/23 23:56 Ancef 1 Gm/Ns 50 Ml IVPB 03/12/23 08:29 Infused Q8H PENDING SALE TO [facility] Infusion Magnesium Hydroxide 30 ml 03/11/23 12:27 Magnesium Hydroxide Susp 30 Ml Udc PO BID PRN Constipation Naloxone HCl 0.1 mg 03/11/23 12:27 Naloxone Hcl 0.4 Mg/Ml Vial IV PUSH Q2M PRN Opiate Reversal Ondansetron HCl 4 mg 03/11/23 12:27 Ondansetron Inj 4 Mg/2 Ml Vial IV PUSH Q4H PRN Nausea And Vomiting Oxycodone HCl 5 mg 03/11/23 12:27 Oxycodone Hcl (*Crx) 5 Mg Tab Ir PO Q4H PRN Pain Rated 4-6 Oxycodone HCl 5 mg 03/11/23 13:00 03/12/23 04:00 Oxycodone Hcl (*Crx) 5 Mg Tab Ir PO 5 mg Q4HR MARILU Administration Polyethylene Glycol 17 gm 03/12/23 09:00 Polyethylene Glycol 3350 17 Gm Powd.Pack PO
--- NOTE | 2023-03-12 07:32 | PM.DS ---
DS: Admitting Diagnosis Discharge Date 03/12 Admitting Diagnosis right knee DJD DS: Discharge Diagnosis Discharge Diagnosis (1) Right knee DJD: Code(s): M17.11 - Unilateral primary osteoarthritis, right knee Status: Acute DS: Summary Hospital Course Hospital Course: 77-year-old female who underwent right total knee arthroplasty on 03/11. Underwent the procedure without complications. Postoperatively she has been afebrile vital signs are stable. Neurovascularly she is intact. Dressing dry and intact. She is weight-bearing as tolerated. She is on Eliquis for DVT prophylaxis. Pain is well controlled with scheduled Tylenol as well as Oxycodone 5 mg. Her not using anti-inflammatories due to allergic reaction to naproxen. She was up walking day of surgery and is comfortable. She had no postop nausea. Patient will home on 2 week course of doxycycline as well as MiraLax and Senokot for constipation. Patient is outpatient therapy starting on Thursday. She was advised any questions or concerns she is to call the office otherwise we will see her at her point dates. Time Spent with Patient Time attestation: Total time spent providing and/or coordinating discharge services: DS: Data Data Completed and Pending Labs on day of discharge: Labs from last 24 hours 03/12/23 05:51 WBC 10.5 H RBC 3.25 L Hgb 9.4 L D Hct 29.1 L MCV 89.5 MCH 28.9 MCHC 32.3 RDW 13.5 Plt Count 242 MPV 9.6 Immature Gran % (Auto) 0.4 Neut % (Auto) 73.5 H Lymph % (Auto) 14.2 L Beadle % (Auto) 11.2 H Eos % (Auto) 0.3 Baso % (Auto) 0.4 Lymph # (Auto) 1.49 Beadle # (Auto) 1.2 H Eos # (Auto) 0.0 Baso # (Auto) 0.0 Abs Immat Gran (auto) 0.04 H Absolute Neuts (auto) 7.7 H Absolute Nucleated RBC 0.0 Nucleated RBC % 0.0 Sodium 134 L Potassium 3.4 Chloride 99 Carbon Dioxide 31 H Anion Gap 4 L BUN 19 H Creatinine 0.70 Estim Creat Clear Calc 67 Estimated GFR > 60 Glucose 110 Calcium 7.6 L Magnesium 2.0 Total Bilirubin 0.3 Direct Bilirubin 0.0 AST 35 ALT 23 Alkaline Phosphatase 69 Total Protein 6.0 L Albumin 3.3 L Discharge Plan Discharge Patient Disposition: Home, Self-Care Discharge Instructions: UMANG NDIAYE M.D [facility] ([place], [place])S, [address] [address] POST-OPERATIVE DISCHARGE INSTRUCTIONS TOTAL KNEE ARTHROPLASTY 1. When resting, lie on back with leg elevated above heart to minimize swelling. Significant swelling could indicate a blood clot and if this occurs call the office (or go to the ER) to have a venous ultrasound. 2. Do exercise 5 times a day. 3. Do not sit with leg down except for meals. 4. Wound Care: Nursing will give additional dressings at discharge. Patient to change dressing at home 1 week from surgery, then maintain until seen in office. 5. May shower with dressing in place. 6. Follow weight bearing status instructions. IMPORTANT: Remember not to sit in the chair for more than 30 minutes at a time. As a rule, during the first 14 days after surgery, only sit in the chair to work on the chair knee bending stretch exercise, for meals or for use of the restroom. Sitting in the chair promotes significant swelling in the knee and leg which will make the knee stiff and more painful and which simulates having a blood clot in the veins of the leg. If this type of significant diffuse swelling occurs, an ultrasound at the hospital will be necessary to rule out a blood clot. Be up walking around with the walker for a few minutes every hour while awake and then rest laying on your back on the couch or in bed with your leg elevated on cushions or pillows. Do not rest in the chair. Stand Alone Forms: General Discharge Instructions Follow-up/Referrals: Umang Ndiaye MD [Physician] - Keep Reg. Scheduled Appt. Discharge Medications: New acetaminophen 500 mg Tablet 1,000 mg PO Q6
[2023-03-12] MEDS: CANDESARTAN CILEXETIL 16 MG TABLET 32 MG PO (08:21)
[2023-03-12] MEDS: APIXABAN 2.5 MG TABLET PO (08:21)
[2023-03-12] MEDS: SENNA/DOCUSATE SODIUM TABLET 2 TAB PO (08:22)
[2023-03-12] MEDS: hydrALAZINE HCL 50 MG TABLET PO (08:22)
[2023-03-12] MEDS: FAMOTIDINE 20 MG TABLET PO (08:22)
[2023-03-12] MEDS: hydroCHLOROthiazide 12.5 MG CAPSULE PO (08:23)
[2023-03-12] MEDS: ROSUVASTATIN 5 MG TABLET PO (08:23)
[2023-03-12] MEDS: polyethylene glycoL 3350 17 GM POWD.PACK PO (08:23)
[2023-03-12] MEDS: ceFAZolin 1 GM/NS 50 ML 1 GM/50 ML BAG IVPB (09:20)
[2023-03-12] MEDS: DOXYCYCLINE HYCLATE 100 MG TABLET PO (09:20)
[2023-03-12 10:12] VITALS: BP 131/47; PULSE 80; RESP 16; TEMP 36.4; O2SAT 96
--- NOTE | 2023-03-12 12:52 | PM.IMPN ---
Progress Note: A&P Assessment and Plan (1) Right knee DJD: Code(s): M17.11 - Unilateral primary osteoarthritis, right knee Status: Acute Assessment and Plan: Postoperative day 0 status post right total knee arthroplasty. Wound care, pain control, and DVT prophylaxis deferred to primary service. Agree with PT/OT. Check baseline labs in a.m. (2) Urinary retention: Code(s): R33.9 - Retention of urine, unspecified Status: Acute Assessment and Plan: Straight catheterization x1. Bladder scan Q shift to rule out ongoing issues. (3) Benign essential hypertension: Code(s): I10 - Essential (primary) hypertension Status: Acute Assessment and Plan: Blood pressures were reviewed and they have been stable. Continue antihypertensives and monitor. (4) Hyperlipidemia: Code(s): E78.5 - Hyperlipidemia, unspecified Status: Acute Assessment and Plan: Continue statin check LFTs in a.m. Plan Thank you for allowing us to participate in this patient's care. Please do not hesitate to contact us with any questions. Subjective Date/time seen: 03/12/23 12:52 Interval history: Patient doing well today with no new complaints. She is likely to discharge this afternoon after working with PT. her pain is well managed. patient okay to discharge medically. Review of Systems Review of Systems: All systems reviewed & are unremarkable except as noted in HPI and below Exam Narrative: GENERAL: Comfortable, no acute distress HENMT: moist mucous membranes EYES: EOM intact b/l NECK: no lymphadenopathy RESPIRATORY: clear to auscultation CARDIO: RRR GI: soft, nontender, bowel sounds present SKIN: no rashes EXTREMITIES: Right knee Tegaderm intact and dry, knee mildly swollen Objective Data Vital Signs Vital Signs: Vital Signs - 24 hr 03/11/23 13:15 03/11/23 14:12 03/11/23 14:28 Temperature 97.3 F L 97.9 F Pulse Rate 78 90 Respiratory Rate 16 16 Blood Pressure 122/55 L 131/55 L Pulse Oximetry 96 95 Oxygen Delivery Room Air 03/11/23 18:12 03/11/23 20:00 03/12/23 00:05 Temperature 97.6 F 96.5 F L 96.4 F L Pulse Rate 80 82 80 Respiratory Rate 16 18 16 Blood Pressure 138/61 118/61 109/70 Pulse Oximetry 96 96 90 Oxygen Delivery 05/25/23 04:00 03/12/23 10:12 Temperature 97.3 F L 97.6 F Pulse Rate 69 80 Respiratory Rate 16 16 Blood Pressure 112/54 L 131/47 L Pulse Oximetry 94 96 Oxygen Delivery Intake/Output Intake/Output: Intake & Output 03/09/23 03/10/23 03/11/23 03/12/23 23:59 23:59 23:59 23:59 Intake Total 1240 590 Output Total 300 Balance 1240 290 Meds/Results Medications: Active Medications Generic Name Dose Route Start Last Admin Trade Name Freq PRN Reason Stop Dose Admin Acetaminophen 1,000 mg 03/11/23 13:00 03/12/23 11:47 Acetaminophen 500 Mg Tablet PO 1,000 mg Q6HR MARILU Administration Apixaban 2.5 mg 03/12/23 09:00 03/12/23 08:21 Apixaban 2.5 Mg Tablet PO 03/23/23 21:01 2.5 mg Q12HR MARILU Administration Candesartan Cilexetil 32 mg 03/12/23 09:00 03/12/23 08:21 Candesartan Cilexetil 16 Mg Tablet PO 32 mg QAM MARILU Administration Diphenhydramine HCl 25 mg 03/11/23 12:27 Diphenhydramine Hcl Inj 50 Mg/Ml Vial IV PUSH Q6H PRN Itching Doxycycline Hyclate 100 mg 03/12/23 10:00 03/12/23 09:20 Doxycycline Hyclate 100 Mg Tablet PO 100 mg Q12HR MARILU Administration Famotidine 20 mg 03/11/23 21:00 03/12/23 08:22 Famotidine 20 Mg Tablet PO 20 mg Q12HR MARILU Administration Hydralazine HCl 50 mg 03/11/23 13:00 03/12/23 08:22 Hydralazine Hcl 50 Mg Tablet PO 50 mg TID MARILU Administration Hydrochlorothiazide 12.5 mg 03/12/23 09:00 03/12/23 08:23 Hydrochlorothiazide 12.5 Mg Capsule PO 04/11/23 08:59 12.5 mg QAM MARILU Administration Magnesium Hydroxide 30 ml 03/11/23 12:27 Magnesium Hydroxide Susp
--- NOTE | 2023-03-12 13:27 | PC.NURSE ---
Pt very anxious to discharge stating she has a special needs daughter who is waiting in car with her . Pt refused 1300 medications stating she will take at home.
== END 2023-03-12 13:00 | disposition home or self-care (01) ==
LOC: ANHSURGERY 05:48 → ANH3MEDSUR 12:28
PROVIDERS: Physician Assistant; Physician Assistant Surgical; PCP Family Medicine; Visit Provider Orthopaedic Surgery
PROC: (CPT 27447; principal; 2023-03-11 07:30)
DX: M17.11 Unilateral primary osteoarthritis, right knee (principal); M21.061 Valgus deformity, not elsewhere classified, right knee; R33.9 Retention of urine, unspecified; Z96.652 Presence of left artificial knee joint; I10 Essential (primary) hypertension; E78.5 Hyperlipidemia, unspecified
CPT/HCPCS: 27447; 36415; 73560; 80048; 80076; 80307; 82040; 83735; 85025; 86850; 86900; 86901; 97110; 97116; 97161; 97165; 97530; 97535; A9270; C1713; C1776; J0171; J0690; J1100; J1170; J2250; J2270; J2405; J2704; J2710; J2795; J3010; J3370; J7030; J7120

== ENCOUNTER → 2023-08-26 09:06 | Outpatient (CLI) | payer MEDICARE, SELFPAY ==
--- NOTE | ~2023-08-26 | MMUS_ITS ---
EXAMINATION: MM diagnostic porsha BI w iván, US breast RT limited HISTORY: Diffuse cystic mastopathy of the right breast TECHNIQUE: Craniocaudal, mediolateral, and mediolateral oblique 3-D tomosynthesis images of the right breast were performed and synthetic 2-D images were generated. CAD analysis was submitted and interp reted. High resolution limited right breast ultrasound was performed. COMPARISON: 07/10/2016, 07/04/2016, 06/20/2015 BREAST PARENCHYMAL COMPOSITION: The breasts are almost entirely fatty. FINDINGS: MAMMOGRAPHIC FINDINGS: No suspicious mass, calcification, or architectural distortion are identified in either breast to sug gest malignancy. There has been no suspicious interval change. No mammographic correlate is identifie d for the reported diffuse cystic mastopathy of the right breast. ULTRASOUND: There is no evidence of focal abnormal solid or cystic mass in the vicinity of the clinical abnormali ty of concern in the right breast. IMPRESSION: 1. No specific mammographic or sonographic correlate is identified for the patient's reported diffuse cystic mastopathy of the right breast. Further evaluation at this time should be based on clinical a ssessment. Continued follow-up physical examination is recommended. 2. Recommend routine screening mammography in one year. BI-RADS Category 1: Negative Reviewed, dictated and finalized at location B. [employer] IMPRESSION: 1. No specific mammographic or sonographic correlate is identified for the nannette ent's reported diffuse cystic mastopathy of the right breast. Further evaluatio n at this time should be based on clinical assessment. Continued follow-up phys ical examination is recommended. 2. Recommend routine screening mammography in one year. BI-RADS Category 1: Negative
== END ==
PROVIDERS: PCP Family Medicine; Visit Provider Family Medicine
DX: N60.11 Diffuse cystic mastopathy of right breast (principal); N60.12 Diffuse cystic mastopathy of left breast
CPT/HCPCS: 76642; 77062; 77066; G0279

== ENCOUNTER 2024-04-14 08:45 | Outpatient (CLI) | payer MEDICARE, SELFPAY ==
[2024-04-14 09:17] LABS: Hemoglobin A1C 5.7 % (<5.7)
[2024-04-14 09:18] LABS: Basophils Absolute Auto 0.1 K/mm3 (0.0-0.1); Basophils Percent Auto 0.9 % (0.2-1.2); Eosinophils Absolute Auto 0.1 K/mm3 (0-0.3); Eosinophils Percent Auto 1.8 % (0-4.4); Hematocrit 40.3 % (37.0-47.0); Hemoglobin 12.9 g/dL (12.0-15.0); Immature Granulocyte Absolute 0.02 K/mm3 (0.00-0.031); Immature Granulocyte Percent A 0.3 % (0-0.5); Lymphocytes Absolute Auto 1.97 K/mm3 (0.9-3.2); Lymphocytes Percent Auto 25.6 % (18.3-44.2); Mean Corpuscular Hemoglobin 28.6 pg (26-34); Mean Corpuscular Volume 89.4 fl (80-100); Mean Platelet Volume 10.3 fl (7.4-10.4); Monocytes Absolute Auto 0.8 K/mm3 (0.1-0.6); Neutrophils Absolute Auto 4.7 K/mm3 (1.3-6.7); Neutrophils Percent Auto 61.4 % (45.5-73.1); Platelet Count Result 282 k/mm3 (150-375); Red Blood Count 4.51 M/mm3 (4.2-5.4); Red Cell Distribution Width 13.3 % (11.5-14.5); White Blood Count 7.7 K/mm3 (4.5-10.0)
[2024-04-14 09:20] LABS: Alanine Aminotransferase 13 U/L (6-35); Albumin Level 4.4 g/dL (3.5-5.1); Alkaline Phosphatase 98 U/L (38-126); Anion Gap 8 mmol/L (4-12); Aspartate Amino Transferase 24 U/L (14-36); Bilirubin,Total 0.5 mg/dL (0.2-1.3); Blood Urea Nitrogen 26 mg/dL (7-17); Calcium 9.3 mg/dL (8.4-10.2); Carbon Dioxide 31 mmol/L (22-30); Chloride 102 mmol/L (98-107); Cholesterol 130 mg/dL (0-200); Estimated Glomerular Filt Rate > 60; Glucose 98 mg/dL (65-110); HDL Direct 51 mg/dL; Potassium 3.5 mmol/L (3.4-5.0); Sodium 141 mmol/L (137-145); Triglycerides 84 mg/dL (<150)
[2024-04-14 09:30] LABS: LDL Cholesterol Direct 62 mg/dL
== END 2024-04-14 08:46 | disposition home or self-care (01) ==
PROVIDERS: PCP Family Medicine; Visit Provider Family Medicine
DX: E03.9 Hypothyroidism, unspecified (principal); I10 Essential (primary) hypertension; E11.9 Type 2 diabetes mellitus without complications; E78.2 Mixed hyperlipidemia
CPT/HCPCS: 36415; 80053; 80061; 83036; 84443; 85025

== ENCOUNTER 2025-03-28 08:52 | Outpatient (CLI) | payer MEDICARE, SELFPAY ==
--- OUTSIDE RECORDS SUMMARY | 2025-03-28 09:11 | XMS_ITS | Data Portability ---
Author Organization [place] [facility] [facility], Main Office Address [address] [place] [address] Care Team Providers Care Tank Worker Name Role Phone PAM HURTADO Primary Care Provider PAM HURTADO Referring Provider [phone] Assessment Encounter Date Assessment Date Assessment LastModified by Organization Details LastModified Time 01/07/2024 01/07/2024 This note is dictated and transcribed by [employer]. Clothes Separator variances may occur. Despite proofreading, typographical errors may occur. Occasional wrong-word or 'odpsd-k-lqva' substitutions may have occurred due to the inherent limitations of voice recording. Read the chart carefully and recognize, using context, where substitutions have occurred. Not available 01/11/2024 11:15:57 04/07/2024 04/07/2024 This note is dictated and transcribed by [employer]. Clothes Separator variances may occur. Despite proofreading, typographical errors may occur. Occasional wrong-word or 'juzkv-v-nmsf' substitutions may have occurred due to the inherent limitations of voice recording. Read the chart carefully and recognize, using context, where substitutions have occurred. Not available 04/07/2024 14:39:21 06/28/2024 06/28/2024 This note is dictated and transcribed by [employer]. Clothes Separator variances may occur. Despite proofreading, typographical errors may occur. Occasional wrong-word or 'cvcod-t-irkj' substitutions may have occurred due to the inherent limitations of voice recording. Read the chart carefully and recognize, using context, where substitutions have occurred. Not available 06/28/2024 14:53:49 01/04/2025 01/04/2025 This note is dictated and transcribed by [employer]. Clothes Separator variances may occur. Despite proofreading, typographical errors may occur. Occasional wrong-word or 'rjujk-a-iwax' substitutions may have occurred due to the inherent limitations of voice recording. Read the chart carefully and recognize, using context, where substitutions have occurred. Not available 01/04/2025 17:14:49 Plan of Treatment Reminders Order Date Submit Date Provider Last Modified By Organization Details Last Modified Time Details Appointments Establish ed Patient 15 2024 01:00P Koki Colindres DPM Not available Not available Not available Lab None recorded. Referral None recorded. Procedures None recorded. Surgeries None recorded. Imaging None recorded. Medication Orders None recorded. Patient TargetsNo targets recorded. Patient InstructionsNo instructions recorded. Reason for Referral None Reported. Problems Name Problem SNOMED Code Status Onset Date Resolution Date Notes Provider Name and Address Organization Details Recorded Time History of total knee arthroplas ty 2253002665538 Active 2021 Not Available [facility] 3 13:17:35 Hammer toe 272690584 Active 2018 Not Available [facility] 3 13:17:35 Acquired trigger finger 3672920 Active Not Available [facility] 3 13:17:35 Bursitis of foot region 607439975 Active 2021 Not Available [facility] 3 13:17:35 Unable to cut own toenails 843563088 Active 2021 Not Available [facility] 3 13:17:36 Pain in left foot 9230707140160 07 Active 2021 Not Available [facility] 3 13:17:36 Pain of left hip joint 8332962487715 00 Active 2021 Not Available [facility] 3 13:17:36 Closed fracture of metatarsal bone 64704100 Active Not Available [facility] 3 13:17:36 Hypertensi ve disorder 80228055 Active 2017 Not Available [facility] 3 13:17:36 Osteoarthr itis 112941333 Active Not Available [facility] 3 13:17:36 Onychomyco sis of toenails 198111383 Active 2018 Not Available [facility] 3 13:17:36 Fracture of lower leg 216076910 Active Not Available [facility] 3 13:17:36 Bunion 364551133 Active 2018 Not Available [facility] 3 13:17:36 Foot pain 16835706 Active 2021 Not Available [facility] 3 13:17:36 Dystrophia unguium 08205285 Active 2021 Not Available [facility] 3 13:17:36 Osteoarthr itis of right knee joint 0070630996844 00 Active 2022 HARSHA Banda, [facility] 3 12:09:47 Callosity on toe 317033341 Active 2022 Elias Colindres DPM [address], [address], [place], [address] , [facility] 3 15:13:50 Pain in toe 923613268 Active 2023 Elias Colindres DPM [address], [address], [place], [address] , [facility] 4 16:25:17 Pain in toe 645739035 Active 2024 Elias Colindres DPM [address], [address], [place], [address] , [facility] 5 17:14:28 Notes:borderline high choles terol, urinary, female problems - infections Problem Notes None recorded. Procedures Surgical History Date Name Laterality Status Provider Name and Address Organization Details Recorded Time 01/05/20 25 Nail Debridement completed Elias Colindres DPM [address], [address], [place], [address], [facility] 01/04/2025 17:14:20 09/27/20 24 Nail Debridement completed Elias Colindres DPM [address], [address], [place], [address], [facility] 10/04/2024 10:39:40 09/27/20 24 Callus Debridement, One completed Elias Colindres DPM [address], [place], [address], [facility] 10/04/2024 10:40:05 06/28/20 24 Nail Debridement completed Elias Colindres DPM [address], [place], [address], [facility] 06/28/2024 14:53:07 06/28/20 24 Callus Debridement, One completed Elias Colindres DPM [address], [address], [place], [address], [facility] 06/28/2024 14:53:41 04/07/20 24 Nail Debridement completed Elias Colindres DPM [address], [address], [place], [address], [facility] 04/07/2024 14:39:10 04/07/20 24 Callus Debridement, One completed Elias Colindres DPM [address], [place], [address], [facility] 04/07/2024 14:39:05 01/07/20 24 Nail Debridement completed Elias Colindres DPM [address], [place], [address], [facility] 01/07/2024 16:24:32 01/07/20 24 Callus Debridement 2-4 completed Elias Colindres DPM [address], [place], [address], [facility] 01/07/2024 16:24:38 10/06/20 23 Nail Debridement completed LUZ MARINA [address], [place], [address], [facility] 10/06/2023 14:31:55 10/06/20 23 Callus Debridement 2-4 completed Elias Colindres DPM [address], [place], [address], [facility] [facility] 10/06/2023 14:31:49 08/06/20 23 Nail Debridement completed Elias Colindres DPM [address], [place], [address], [facility] [facility] 08/06/2023 14:35:05 08/06/20 23 Callus Debridement, One completed Elias Colindres DPM [address], [facility] [address], [place], [address], [facility] [employer] [facility] 08/06/2023 15:13:37 Tonsillectomy completed Not Available [facility] 12/17/2022 13:17:10 Imaging Results None recorded. Procedure Notes None recorded. Medical Equipment None Reported. Allergies Allergen ID Allergen Name Allergen Category Reaction Reaction Severity Criticality Documentation Date Start Date Code Code System Note Provider Name and Address Organization Details Recorded Time 55348 Niaspan medicatio n Not available Not available Not available 12/17/2022 15350 6 RxNorm hives Not Available [facility] 3 13:19:04 41669 Naprosyn medicatio n Not available Not available Not available 12/17/202220291 2 RxNorm hives Not Available [facility] 3 13:19:04 61423 Aleve medicatio n Not available Not available Not available 12/17/2022 21962 1 RxNorm Not Available [facility] 3 13:19:04 Medications Name Sig Start Date Stop Date Status Note LastModified by Organization Details LastModified Time potassium chloride ER 10 mEq capsule,ext ended release TAKE 2 CAPSULES BY MOUTH DAILY 11/25 completed Not Available Not Available Not Available candesartan 32 mg-hydrochl orothiazide 12.5 mg tablet TAKE 1 TABLET BY MOUTH EVERY MORNING active Not Available Not Available No t Available fluconazole 150 mg tablet TAKE 1 TABLET BY MOUTH 1 TIME 03/23 completed Not Available Not Available Not Available cephalexin 250 mg capsule TAKE 1 CAPSULE BY MOUTH EVERY 8 HOURS 12/25 completed Not Available Not Available Not Available hydrocodone 5 mg-acetamin ophen 325 mg tablet 05/28 completed Not Available Not Available Not Available Nystop 100,000 unit/gram topical powder APPLY TWICE DAILY TO GROIN REGION 12/11 completed Not Available Not Available Not Available phenazopyri dine 200 mg tablet 12/25 completed Not Available Not Available Not Available hydralazine 25 mg tablet TK 1 T PO BID 06/07 completed Not Available Not Available Not Available potassium chloride ER 10 mEq tablet,exte nded release TAKE 1 TABLET BY MOUTH TWICE DAILY 11/25 completed Not Available Not Available Not Available ciprofloxac in 250 mg tablet TAKE 1 TABLET BY MOUTH EVERY 12 HOURS 12/25 completed Not Available Not Available Not Available amlodipine 5 mg tablet TK 1 T PO D IN THE JO 06/07 completed Not Available Not Available Not Available ciprofloxac in 500 mg tablet TAKE 1 TABLET BY MOUTH EVERY 12 HOURS 03/23 completed Not Available Not Available Not Available sulfamethox azole 800 mg-trimetho prim 160 mg tablet TAKE 1 TABLET BY MOUTH EVERY 12 HOURS FOR 3 DAYS 03/23 completed Not Available Not Available Not Available tramadol 50 mg tablet 05/28 completed Not Available Not Available Not Available acetaminoph en 500 mg tablet TAKE 2 TABLETS BY MOUTH EVERY 6 HOURS 04/22 completed Not Available Not Available Not Available triamcinolo ne acetonide 0.1 % topical cream APPLY TOPICALLY TO THE AFFECTED AREA DAILY NEEDED FOR ITCHING 03/23 completed Not Available Not Available Not Available hydralazine 50 mg tablet TAKE 1 TABLET BY MOUTH THREE TIMES DAILY active Not Available Not Available No t Available mupirocin 2 % topical ointment APPLY DIRECTED IN BOTH NOSTRILS TWICE DAILY FOR 5 DAYS STARTING 03-06-2303/23 completed Not Available Not Available Not Available cefuroxime axetil 500 mg tablet 05/28 completed Not Available Not Available Not Available polyethylen e glycol 3350 17 gram/dose oral powder 05/28 completed Not Available Not Available Not Available doxycycline hyclate 100 mg tablet TAKE 1 TABLET BY MOUTH EVERY 12 HOURS 04/22 completed Not Available Not Available Not Available Hibiclens 4 % topical liquid Perform daily total body-wash for 5 days 03/23 completed Not Available Not Available Not Available amoxicillin 875 mg-potassiu m clavulanate 125 mg tablet 03/23 completed Not Available Not Available Not Available oxycodone 5 mg tablet TAKE 1 TABLET BY MOUTH EVERY 4 HOURS 03/23 completed Not Available Not Available Not Available rosuvastati n 5 mg tablet TAKE 1 TABLET BY MOUTH DAILY active Not Available Not Available No t Available rosuvastati n 10 mg tablet TK 1 T PO DAILY 05/28 completed Not Available Not Available Not Available nitrofurant oin monohydrate /macrocryst als 100 mg capsule TAKE 1 CAPSULE BY MOUTH EVERY 12 HOURS FOR 7 DAYS 12/25 completed Not Available Not Available Not Available potassium chloride 06/07 completed Not Available Not Available Not Available aspirin 02/12 completed Not Available Not Available Not Available Travel Sickness (meclizine) 25 mg chewable tablet TAKE 1 TABLET THREE TIMES A DAY NEEDED 05/28 completed Not Available Not Available Not Available Eliquis 2.5 mg tablet TAKE 1 TABLET BY MOUTH EVERY 12 HOURS 04/22 completed Not Available Not Available Not Available Stimulant Laxative Plus 8.6 mg-50 mg tablet TAKE 2 TABLETS BY MOUTH EVERY 12 HOURS 01/06 completed Not Available Not Available Not Available Paxlovid 300 mg (150 mg x 2)-100 mg tablets in a dose pack TK 2 NIRMATREL VIR TS AND 1 RITONAVIR T TOGETHER PO BID FOR 5 DAYS TWICE DAILY FOR 5 DAYS 11/14 completed Not Available Not Available Not Available Vitals Date Recorded Body height Heart rate Respiratory rate Oxygen saturation Oxygen saturation in Arterial blood by Pulse oximetry Systolic blood pressure Diastolic blood pressure Provider Name and Address Organization Details Last Updated DateTime 5 157.48 cm 75 /min 14 /min 98 % 98 % 134 mm[Hg] 63 mm[Hg] Radha Armendariz [facility] 5 16:48:41 Date Recorded Body height Heart rate Respiratory rate Oxygen saturation Oxygen saturation in Arterial blood by Pulse oximetry Systolic blood pressure Diastolic blood pressure Provider Name and Address Organization Details Last Updated DateTime 4 157.48 cm 71 /min 14 /min 98 % 98 % 145 mm[Hg] 78 mm[Hg] Radha Armendariz [facility] 4 14:04:26 Date Recorded Body height Heart rate Respiratory rate Oxygen saturation Oxygen saturation in Arterial blood by Pulse oximetry Systolic blood pressure Diastolic blood pressure Provider Name and Address Organization Details Last Updated DateTime 4 157.48 cm 68 /min 14 /min 98 % 98 % 142 mm[Hg] 63 mm[Hg] Radha Armendariz [facility] [employer] [facility] 4 13:58:42 Date Recorded Body height Heart rate Oxygen saturation Oxygen saturation in Arterial blood by Pulse oximetry Systolic blood pressure Diastolic blood pressure Provider Name and Address Organization Details Last Updated DateTime 4 157.48 cm 70 /min 99 % 99 % 140 mm[Hg] 62 mm[Hg] Trista Garcia Hannah [facility] [employer] [facility] 13:56:48 Date Recorded Body height Heart rate Respiratory rate Oxygen saturation Oxygen saturation in Arterial blood by Pulse oximetry Systolic blood pressure Diastolic blood pressure Provider Name and Address Organization Details Last Updated DateTime 4 157.48 cm 70 /min 14 /min 98 % 98 % 127 mm[Hg] 63 mm[Hg] Radha Armendariz [facility] [employer] [facility] 4 14:05:39 Social History None recorded. Functional Status Question Answer Note LastModified by [employer] Details LastModified Time What is your level of alcohol consumption? None [id number] Information not available 12/17/2022 Mental Status None recorded. Family History Relationship Description Onset Age of this Age Resolved Age Notes LastModified by Organization Details LastModified Time Father Heart disease [id number] Not available 12/17/2022 13:17:10 Brother Hypertensive disorder whole family [id number] Not available 12/17/2022 13:17:10 Notes:congestive heart failu re - father Medical History Condition Response BLINDNESS N KIDNEY STONES N MRSA N CARPAL TUNNEL SYNDROME N LUNG DISEASE/DISORDER N HISTORY OF DRUG ABUSE N RADIATION / CHEMOTHERAPY N COPD N SPORTS INJURY N ANKLE PAIN N BLOOD DISEASES N SCHIZOPHRENIA N SHINGLES N BOWEL PROBLEMS N SHOULDER PAIN N DEPRESSION (INCLUDING POST ) N STROKE/TIA N KNEE PAIN N ULCERS N BENIGN PROSTATIC HYPERPLASIA N OBESITY N GERD/NAUSEA N ANEURYSM N URINARY/BLADDER/KIDNEY PROBLEMS N CORONARY ARTERY DISEASE (CAD) N ADDICTION CONCERNS N USE OF BLOOD THINNERS N SKIN PROBLEMS N EMPHYSEMA N MUSCLE,JOINT OR BONE PROBLEMS N DVT N STOMACH ULCERS N BLOOD CLOTS N USE OF NSAIDS N CONCUSSION OR SPINAL TRAUMA N NEUROPATHY N AIDS/HIV N FRACTURES N ELBOW PAIN N HYPERTENSION N TOURETTE'S N ANXIETY DISORDER N Metal allergy N BLOOD TRANSFUSION N ANEMIA/BLOOD DISORDER N BIPOLAR DISORDER N BRONCHITIS N OSTEOARTHRITIS N TUBERCULOSIS N FOOT PROBLEM N HEART VALVE DISORDERS N ALLERGIES/HAYFEVER N SOFT TISSUE INJURY N INFECTIOUS DISEASE N HEART ARRHYTHMIA N INSOMNIA N RHEUMATOID ARTHRITIS N HIGH CHOLESTEROL / HYPERLIPIDEMIA N EDEMA N CHRONIC PAIN SYNDROME N CAROTID BLOCKAGE N BACK / NECK PROBLEMS N HAVE YOU BEEN HOSPITALIZED OR SEEN IN [facility] IN THE PAST YEAR ? N BURSITIS N HERNIATED DISC N DIALYSIS N FIBROMYALGIA N OSTEOPOROSIS N ARTHRITIS N NO SIGNIFICANT PAST MEDICAL HISTORY N PERIPHERAL NEUROPATHY N DIABETES, TYPE N HEARTBURN / REFLUX N HEPATITIS / LIVER DISEASE N GOUT N SLEEP DISORDER N ALZHEIMER'S DISEASE N HERPES N SEIZURES/EPILEPSY N HEADACHES/MIGRAINES N VASCULAR DISEASE N HIP PAIN N Blood Disorder N DIZZINESS N HEAD TRAUMA OR INJURY N HEART DISEASE/HEART PROBLEMS N MULTIPLE SCLEROSIS N CARDIAC ARRHYTHMIA N CANCER: SPECIFY N ANESTHESIA COMPLICATIONS N ATRIAL FIBRILLATION N AUTOIMMUNE DISEASE N Gynecological HistoryNo gynecological history recorded. Obstetrics History GPAL:G 0 P 0 0 0 0 Past Encounters Encounter ID Performer Location Encounter Start Date Encounter Closed Date Diagnosis/Indication Diagnosis SNOMED-CT Code Diagnosis ICD10 Code Diagnosis Note [id number] Elias Colindres DPM [facility] [address] [address] 05/20/2021 00:00:00 05/20/2021 14:25:05 [id number] Umang Ndiaye MD [facility] [address] [facility] [address] [place] [address] 06/07/2021 00:00:00 06/17/2021 13:26:11 [id number] Elias Colindres DPM [facility] [address] [address] 08/19/2021 00:00:00 08/19/2021 12:20:07 [id number] MD TABATHA [facility] [address] [facility] [address] [place] [address] 10/25/2021 00:00:00 10/29/2021 18:56:04 [id number] Umang Ndiaye MD [facility] [address] [place] [address] 11/25/2021 00:00:00 11/25/2021 14:30:38 [id number] Umang Ndiaye MD [facility] [address] [place] [address] 12/11/2021 00:00:00 12/11/2021 12:31:38 [id number] MD MARIA DOLORES [facility] [address] [place] [address] 12/25/2021 00:00:00 12/25/2021 10:50:21 [id number] [facility] [address] [place] [address] 12/31/2021 00:00:00 01/01/2022 14:20:23 [id number] MD MARIA DOLORES [facility] [address] [facility] [place] [address] 02/12/2022 00:00:00 02/12/2022 10:28:20 [id number] Elias oClindres DPM [facility] [address] [address] 04/03/2022 00:00:00 04/03/2022 16:03:19 [id number] [facility] _ATHENA_M IGRATION_ DEFAULT_1 _1 , 04/25/2022 00:00:00 04/28/2022 09:17:00 [id number] [facility] _ATHENA_M IGRATION_ DEFAULT_1 _1 , 07/25/2022 00:00:00 07/28/2022 09:49:04 [id number] MD TABATHA [facility] [address] [place] [address] 08/27/2022 00:00:00 09/01/2022 11:06:16 [id number] Umang Ndiaye MD [facility] [address] [facility] [address] [place] [address] 11/14/2022 00:00:00 11/15/2022 18:17:12 [id number] Umang Ndiaye MD [facility] [address] [facility] [address] [place] [address] 03/23/2023 14:25:26 03/23/2023 15:30:57 History of right total knee replacement 8069281483 178065 Z96.651 [id number] Umang Ndiaye MD [facility] [address] [facility] [address] [place] [address] 04/06/2023 14:57:06 04/06/2023 16:49:04 History of right total knee replacement 9784362698 340755 Z96.651 [id number] Umang Ndiaye MD [facility] [address] [facility] [address] [place] [address] 04/22/2023 09:59:07 04/22/2023 12:18:05 History of right total knee replacement 9946782019 320768 Z96.240 [id number] LUZ MARINA [facility] [address] [facility] [address] [place] [address] 08/06/2023 13:47:23 08/07/2023 11:35:14 Onychomycosis of toenails 890527717 B35.1 Patient was educated on treatment options of onychomyco sis. Patient's nails 1 through 10 were debrided without incident. Patient defers pharmacolo gical management due to possible side effects and will continue with conservati ve options. Return to clinic as needed every 3 months for this problem Hammer toe 289815667 M20 .40 continue conservati ve therapyPat ient defers surgeryRec ommend a soft toe box with wide shoe gear Callosity on toe 5035197 01 L84 debrided without incidentAs above [id number] Elias Colindres DPM [facility] [address] [place] [address] 10/06/2023 13:47:49 10/07/2023 11:46:45 Callosity on toe 807700506 L84 debrided without incidentco ntinue offloading and wide soft toe box shoes Dystrophia unguium 86438 009 L60.3 nails debrided without incident Hammer toe 876349394 M20 .40 continue conservati ve therapyPat ient defers surgeryRec ommend a soft toe box with wide shoe gear [id number] Elias Colindres DPM [facility] [address] [place] [address] 01/07/2024 13:59:20 01/12/2024 11:20:03 Callosity on toe 314141036 L84 chronicdeb rided without incidentco ntinue offloading and wide soft toe box shoes Dystrophia unguium 51086 009 L60.3 nails debrided without incident Pain in toe 902917614 M7 9.674 M79.675 secondary to the painful toenails Unable to cut own toenails 927504828 Z74.1 [id number] [facility] [address] [place] [address] 04/07/2024 13:54:48 04/08/2024 10:11:34 Pain in toe 472564430 M79.674 M79.675 painful toenails Secondary to deformity Callosity on toe 2164152 01 L84 right 4th toedebride d without incidentco ntinue offloading and wide soft toe box shoes Dystrophia unguium 79688 009 L60.3 nails debrided without incident Hammer toe 164222461 M20 .40 continue conservati ve therapyPat ient defers surgeryRec ommend a soft toe box with wide shoe gear Unable to cut own toenails 831309186 Z74.1 [id number] Elias Colindres DPM [facility] [address] [place] [id number] 06/28/2024 13:50:32 06/28/2024 15:11:42 Pain in toe 112924753 M79.674 M79.675 painful toenails Secondary to deformity Callosity on toe 4416524 01 L84 left 4th toedebride d without incidentco ntinue offloading and wide soft toe box shoes Hammer toe 964101714 M20 .40 continue conservati ve therapyPat ient defers surgeryRec ommend a soft toe box with wide shoe gear Dystrophia unguium 09593 009 L60.3 nails debrided without incident Unable to cut own toenails 982538819 Z74.1 [id number] Elias Colindres DPM [facility] [address] [address] 09/27/2024 13:56:30 10/14/2024 15:03:03 Callosity on toe 458789481 L84 left 4th toedebride d without incidentco ntinue offloading and wide soft toe box shoes Dystrophia unguium 74671 009 L60.3 nails debrided without incident Pain in toe 932341460 M7 9.674 M79.675 painful toenails And callus [id number] LUZ MARINA [facility] [address] [place] [address] 01/04/2025 16:24:57 01/04/2025 18:14:01 Dystrophia unguium 21756908 L60.3 nails debrided without incident Pain in toe 250217937 M7 9.674 M79.675 painful toenails Unable to cut own toenails 085983055 Z74.1 Health Concerns Section Related Observation LastModified by Organization Detai ls LastModified Time None Recorded Concern Status LastModified by Organization Details LastModified Time None Recorded Advance Directives Directive None Recorded Payers Encounter Date Sequence Insurance Name Policy Number Policy Laurent Covered Member ID Laurent Member ID Guarantor Name 01/07/2024 1 [employer] (MEDICARE REPLACEMENT /ADVANTAGE - PPO) [id number] 1 Hoa Miranda [id number] Hoa Miranda 04/07/2024 1 [employer] (MEDICARE REPLACEMENT /ADVANTAGE - PPO) [id number] 1 Hoa Miranda [id number] Hoa Miranda 06/28/2024 1 [employer] (MEDICARE REPLACEMENT /ADVANTAGE - PPO) [id number] 1 Hoa Miranda [id number] Hoa Miranda 09/27/2024 1 [employer] (MEDICARE REPLACEMENT /ADVANTAGE - PPO) [id number] 1 Hoa Miranda [id number] Hoa Miranda 01/04/2025 1 [employer] (MEDICARE REPLACEMENT /ADVANTAGE - PPO) [id number] 1 Hoa Miranda [id number] Hoa Miranda Notes Date Note Type Note Provider Name and Address Organization Details Recorded Time 01/07/2024 text/html . Patient is a 78-year-old female who returns the office for follow-up on painful toenails secondary to thickening and calluses. Patient denies any open wounds or infection. Patient states that she does not want any surgery secondary to her hammertoes and bunions. Patient denies any other complaints and states that when the calluses are cut down she does not have any discomfort. Elias Colindres DPM [address] [facility], [place] [facility] [address], [place], [address], [facility] 01/11/2024 11:16:08 04/07/2024 text/html . Patient is 78-year-old female who returns the office for follow-up on painful toes. Patient has contractures of her toes which result in thickening and deformity of her toenails. Patient states they are painful with walking. Patient denies any open wounds or infection. Patient also has a painful corn to the dorsal 4th right toe. Patient denies any other complaints. Elias Colindres DPM [address] [facility], [place] [facility] [address], [place], [address], [facility] 04/07/2024 14:40:06 06/28/2024 text/html . Patient is a 78-year-old female who returns the office for follow-up on routine foot care. Patient has chronic foot deformities secondary to bunions and hammertoes which she states at this time she does not want to undergo surgery she states she is aware this she is at risk for wounds and possible amputation if becomes infected. Patient continues conservative shoe gear with offloading. Patient states that her toenails are also thickened painful and she is unable to cut them would like to have them cut. Patient denies any other complaints. Elias Colindres DPM [address], [place], [address], [facility] 06/28/2024 16:38:37 09/27/2024 text/html . Patient is a 79-year-old female who returns the office for routine foot care. Patient has elongated painful toenails she states she is unable to cut them and would like to have them cut. Patient denies any other complaints. Elias Colindres DPM [address], [place], [address], [facility] 10/04/2024 10:40:40 01/04/2025 text/html . Patient is a 79-year-old female who returns for Nail debridement due to thickened elongated toenails. she denies any other complaints. Elias Colindres DPM [address], [place], [address], [facility] 01/04/2025 17:15:22 OBGyn Episode No OBEpisode recorded.
--- OUTSIDE RECORDS SUMMARY | 2025-03-28 09:11 | XMS_ITS | Continuity of Care Document ---
Author Organization Formerly [facility] Address [address] [place] [address] [address] [place] [address] Phone Care Team Providers Care Geochemical Laboratory Technician Name Role Phone Barr OD, Tra Unavailable Unavailable Advance Directives Directive Yes / No Effective Date File Name No Information Encounters Encounter Description Practice Location Reason(s) For Visit Diagnoses Date Provider Providers Copied on Encounter [facility], [address], [place], [place], [id number], [place] tel:[phone] [facility] [place] [place] No Information 2[address] Barr OD Tra. [address] [facility] [place] [place] , [address], [place], [address], [place]. tel:[phone] Family History Family Member Type Diagnosis Age At Onset No Information Payers Payer name Insurance type Covered libertarian ID Authoriza tion(s) No Information Social History Type Description Quantity Date Captured Comments Sex Female Smoking Status No Information Chief Complaint And Reason For Visit No Information Reason For Referral Reason For Referral No Information History Of Present Illness Encounter Date Complaint History Of Prese nt Illness No Information Functional Status Date Functional Assessmen t No Information Instructions Date Instruction Additional Infor mation No Information Assessments Type Assessment Date No Information Patient Care Teams Name Effective Dates (start - stop) Status Members No Information
--- OUTSIDE RECORDS SUMMARY | 2025-03-28 09:12 | XMS_ITS | Clinical Summary ---
Author Organization [facility] Address [address] [place] [address] Care Team Providers Care Angle Shear Operator Name Role Phone Umang Ndiaye MD Primary Care Provider [phone] Allergies Active Allergy Reactions Criticality Noted Date Comments Naproxen Hives Medium 09/27/2021 Medications candesartan-hydr ochlorothiazid (ATACAND HCT) 32-12.5 mg per tablet Take 1 tablet by mouth daily 07/24/2021 Active hydrALAZINE (APRESOLINE) 50 mg tablet Take 50 mg by mouth 3 (three) times a day 09/19/2021 Active rosuvastatin (CRESTOR) 5 mg tablet Take 5 mg by mouth daily 08/26/2021 Active aspirin 81 mg chewable tablet Take 81 mg by mouth daily Active Active Problems Problem Noted Date Diagnosed Date Preoperative cardiovascular examination 09/27/20 21 HTN (hypertension), benign 09/27/2021 Mixed hyperlipidemia 09/27/2021 Systolic murmur 09/27/2021 Medical History Medical History Date Comments Heart murmur Hypertension Hyperlipidemia Family History Medical History Relation Name Comments Heart attack Father No Known Problems Mother Relation Name Status Comments Father Other age 70 Mother Social History Tobacco Use Types Packs/Day Years Used Date Smoking Tobacco: Never Personal Safety Answer Date Recorded Getting School Help Needed Not on file 12/16 Comments Unknown Sex and Gender Information Value Date Recorded Sex Assigned at Not on file Legal Sex Female 12:17 PM 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 Gender Identity Not on file Sexual Orientation Not on file Obstetrics History Last Filed Vital Signs Vital Sign Reading Time Taken Comments Blood Pressure 118/68 09/27/2021 11:05 AM HOSPITAL SCIENTIST Pulse 72 09/27/2021 11:05 AM HOSPITAL SCIENTIST Temperature - - Respiratory Rate - - Oxygen Saturation 98% 09/27/2021 11:05 AM HOSPITAL SCIENTIST Inhaled Oxygen Concentration - - Weight 73 kg (161 lb) 09/27/2021 11:05 AM HOSPITAL SCIENTIST Height 165.1 cm (5' 5) 09/27/2021 11:05 AM HOSPITAL SCIENTIST Body Mass Index 26.79 09/27/2021 11:05 AM HOSPITAL SCIENTIST Plan of Treatment Not on file Insurance [employer] MEDICARE Care Teams Angle Shear Operator Relationship Specialty Start Date End Date Umang Ndiaye MD [address] [place] [address] PCP - General Orthopedic Surgery 06/26/21
--- OUTSIDE RECORDS SUMMARY | 2025-03-28 09:12 | XMS_ITS | Referral Summary ---
Author Organization [facility] Address [address] [place] [address] Care Team Providers Care Cartridge Gauger Name Role Phone Umang Ndiaye MD Primary Care Provider [phone] Allergies Active Allergy Reactions Criticality Noted Date [...] 09/27/2021 Mixed hyperlipidemia 09/27/2021 Systolic murmur 09/27/2021 Social History Tobacco Use Types Packs/Day Years Used Date Smoking Tobacco: Never Personal Safety Answer Date Recorded Getting School Help Needed Not on file 12/16 Comments Unknown Sex and Gender Information Value Date Recorded Sex Assigned at Not on file Legal Sex Female 12:17 PM [employer] Gender Identity Not on file Sexual Orientation Not on file Last Filed Vital Signs Vital Sign Reading Time Taken Comments Blood Pressure 118/68 09/27/2021 11:05 AM [employer] Pulse 72 09/27/2021 11:05 AM [employer] Temperature - - Respiratory Rate - - Oxygen Saturation 98% 09/27/2021 11:05 AM [employer] Inhaled Oxygen Concentration - - Weight 73 kg (161 lb) 09/27/2021 11:05 AM [employer] Height 165.1 cm (5' 5) 09/27/2021 11:05 AM [employer] Body Mass Index 26.79 09/27/2021 11:05 AM [employer] Plan of Treatment Not on file Insurance [employer] MEDICARE Care Teams Cartridge Gauger Relationship Specialty Start Date End Date Umang Ndiaye MD [address] [place] [address] PCP - General Orthopedic Surgery 06/26/21
[2025-03-28 09:54] LABS: Alanine Aminotransferase 18 U/L (6-35); Albumin Level 4.4 g/dL (3.5-5.1); Alkaline Phosphatase 102 U/L (38-126); Anion Gap 9 mmol/L (4-12); Aspartate Amino Transferase 33 U/L (14-36); Bilirubin,Total 0.5 mg/dL (0.2-1.3); Blood Urea Nitrogen 27 mg/dL (7-17); Calcium 9.5 mg/dL (8.4-10.2); Carbon Dioxide 28 mmol/L (22-30); Chloride 101 mmol/L (98-107); Estimated Glomerular Filt Rate > 60; Glucose 95 mg/dL (65-110); Potassium 3.8 mmol/L (3.4-5.0); Sodium 138 mmol/L (137-145); Total Protein 7.7 g/dL (6.3-8.2)
== END 2025-03-28 08:53 | disposition home or self-care (01) ==
LOC: ANHLAB 08:53
PROVIDERS: PCP Family Medicine; Visit Provider Family Medicine
DX: I10 Essential (primary) hypertension (principal)
CPT/HCPCS: 36415; 80053